=== PATIENT | male | born 1955 | race Caucasian/White ===

== ENCOUNTER 2019-01-17 10:23 | Inpatient (IN) ==
[2019-01-17] MEDS ORDERED: SODIUM CHLORIDE 0.9% 1000ML 1,000 ML IV SCH (12:00)
[2019-01-17 12:04] LABS: Basophils # (auto) 0.01 K/uL (0-0.2); Basophils % (auto) 0.1 %; Eosinophils # (auto) 0.08 K/uL (0-0.5); Eosinophils % (auto) 1.1 %; Hematocrit (blood only) 44.6 % (42-52); Hemoglobin 15.3 g/dL (14.0-18.0); Immature Granulocytes # (auto) 0.02 K/uL (0.00-0.02); Immature Granulocytes % (auto) 0.3 %; Lymphocytes # (auto) 0.76 K/uL (1.2-3.4); Lymphocytes % (auto) 10.6 %; Mean Corpuscular Hgb Conc 34.3 g/dL (32-36); Mean Corpuscular Volume 94.1 fL (80-100); Mean Platelet Volume 12.1 fL (7.4-10.4); Monocytes # (auto) 0.45 K/uL (0.11-0.59); Monocytes % (auto) 6.3 %; Neutrophils # (auto) 5.84 K/uL (1.4-6.5); Neutrophils % (auto) 81.6 %; Platelet Count 242 K/uL (130-400); RDW Standard Deviation 44.7 fL (36.4-46.3); Red Blood Count 4.74 M/uL (4.7-6.1); White Blood Count 7.16 K/uL (4.8-10.8)
[2019-01-17 12:10] LABS: INR 1.1 (0.9-1.1); Prothrombin Time 11.5 Seconds (9.0-12.0)
--- NOTE | 2019-01-17 12:17 | XRay Report ---
XR chest 1V portable HISTORY: 63 years-old Male weakness acute weakness COMPARISON: None available TECHNIQUE: Portable AP view of the chest FINDINGS: Mild asymmetric right hilar prominence. Cardiac silhouette is normal in size. No pneumothorax, pleura l effusion or overt pulmonary edema. No focal airspace consolidation. Mild degenerative changes of th e shoulders and spine. IMPRESSION: 1. Mild asymmetric right hilar prominence is likely secondary to pulmonary vasculature versus adenopa thy. Correlate with prior imaging. 2. Lungs appear clear. The above report was generated using voice recognition software. It may contain grammatical, syntax o r spelling errors. Electronically signed by: Perez Almanzar M.D. 01/17/2019 12:14 PM
[2019-01-17 12:29] LABS: Blood Urea Nitrogen 23 mg/dl (7-18); Carbon Dioxide 29 mmol/L (21-32); Chloride 93 mmol/L (98-107); Potassium 4.6 mmol/L (3.5-5.1); Sodium 130 mmol/L (136-145)
[2019-01-17 12:30] LABS: Alanine Aminotransferase 116 U/L (12-78); Albumin Globulin Ratio 0.5 (0.9-2); Albumin Level 2.8 gm/dl (3.4-5.0); Alkaline Phosphatase 697 U/L (45-117); Aspartate Aminotransferase 90 U/L (15-37); BUN Creatinine Ratio 16.1 (10-20); Bilirubin,Total 3.1 mg/dl (0.2-1); Creatine Kinase 128 U/L (39-308); Creatinine Clr Calc Pharmacy 69.1 ml/min; Est GFR (African American) 58.2; Est GFR (Non-African American) 50.2; Globulin 5.2 gm/dl (2.5-4.0); Glucose 635 mg/dl (70-99)
[2019-01-17 12:40] LABS: Appearance Urine Clear (Clear); Bilirubin Urine Negative (Negative); Blood Urine Negative (Negative); Color Urine Yellow; Glucose Urine UA 3+ (Negative); Ketones Urine 1+ (Negative); Leukocyte Esterase Urine Negative (Negative); Nitrite Urine Negative (Negative); Protein Urine Negative (Negative); Specific Gravity Urine 1.041 (1.000-1.030); Urobilinogen Urine Negative (Negative)
--- NOTE | 2019-01-17 12:59 | CT Scan Report ---
ABDOMEN AND PELVIS CT WITHOUT CONTRAST CT DOSE: 1438.60 mGy.cm HISTORY: Acutely elevated LFTs with weight loss elevated LFTs, weight loss TECHNIQUE: Multiaxial CT images of the abdomen and pelvis were performed without contrast. A dose lo wering technique was utilized adhering to the principles of ALARA. COMPARISON STUDY: Chest radiograph of same day. FINDINGS: Limited study without the use of IV contrast, notably there is limited evaluation of the solid abdomi nal organs. Coronary arterial calcifications are noted. Lung bases are generally clear. No pneumatosi s or pneumoperitoneum. Spleen is mildly enlarged, 14.2 cm. Mild gallbladder distention with cholelith iasis noted about the gallbladder fundus. No associated gallbladder wall thickening or pericholecysti c fluid. There are several dense foci noted about the common bile duct measuring up to approximately 7 mm compatible with choledocholithiasis. Moderate intrahepatic and extrahepatic biliary ductal dilat ion, common bile duct measuring up to 1.5 cm transversely. The pancreas and adrenal glands are unrema rkable. Mild nonspecific bilateral perinephric stranding. Probable cyst of the inferior pole left kid mp, 11 mm. Ureters, and urinary bladder are unremarkable. Prostamegaly. No aortic aneurysm or adenop athy. Suspected tiny hiatal hernia. No bowel obstruction or focal bowel wall thickening. Mild colonic diver ticulosis without acute diverticulitis. Normal appendix. No ascites or mesenteric inflammation. Small fat filled periumbilical hernia. Soft tissues are unremarkable. Multilevel facet arthrosis with inte rvertebral disc space narrowing and posterior disc osteophyte complex formation resulting in multilev el central canal stenosis. IMPRESSION: 1. Cholelithiasis with choledocholithiasis results in gallbladder distention and moderate intrahepati c and extrahepatic biliary ductal dilation. 2. No CT evidence of acute cholecystitis or pancreatitis. 3. No bowel obstruction or bowel wall thickening. Normal appendix. 4. Prostamegaly. 5. Additional findings as above. Electronically signed by: Perez Almanzar M.D. 01/17/2019 12:57 PM
[2019-01-17] MEDS ORDERED: INSULIN GLARGINE SOLOSTAR 100 UNITS/ML 3 ML PEN SC STA (13:44)
[2019-01-17] MEDS ORDERED: INSULIN ASPART 100 UNITS/ML 3 ML PEN SC STA (13:44)
[2019-01-17] MEDS ORDERED: GLUCOSE 10 TABS/TUBE PO PRN ×2 (13:45→18:52)
[2019-01-17] MEDS ORDERED: GLUCOSE 40% GEL 15 GM TUBE PO PRN ×2 (13:45→18:52)
[2019-01-17] MEDS ORDERED: CARBOHYDRATES FOR HYPOGLYCEMIA PO PRN ×2 (13:45→18:52)
[2019-01-17] MEDS ORDERED: GLUCAGON FOR INJ 1 MG VIAL IM PRN (13:45)
[2019-01-17] MEDS ORDERED: DEXTROSE 50% 50 ML SYRINGE IV PRN ×2 (13:45→18:52)
[2019-01-17] MEDS ORDERED: ONDANSETRON INJ 2 MG/ML 2 ML VIAL IV STA (13:50)
--- NOTE | 2019-01-17 14:23 | Emergency Department Note ---
Entered by Suzan Bateman acting as a scribe for History of Present Illness General Chief complaint: Weakness Stated complaint: WEAK,TIRED,HIGH SUGAR Time Seen by Provider: 01/17/19 11:44 Source: patient and family Mode of arrival: ambulatory Limitations: no limitations History of Present Illness Provider complaint: weakness Onset (ago): month(s) 7 Location: head (generalized) Pain Consistency: + other (worsening) Quality: + other (weakness) Associated symptoms: + denies other symptoms (pain), + nausea/vomiting and + other (tired, weight loss); no headaches The patient is a 63 year old male who presents to the ER with complaints of worsening weakness that began around July. The patient reports that he has been tired but denies any pain anywhere. He states that he has been unable to work or sleep secondary to his symptoms. He also notes that he has been vomiting during this time as well. He reports that he was recently evaluated by his PCP and diagnosed with autoimmune hepatitis. He states that he has been told he has gallstones as well but denies having a cholecystectomy performed. He explains that he does have an appointment with GI on February 11. His family at bedside notes that he has lost about 50 pounds since July as well. He reports that he did take his blood pressure medication this morning. He also states that he recently finished a Z-Luke and amoxicillin for a URI. Home Medications Home Medications Medication Instructions Recorded Confirmed Type amlodipine 10 mg PO DAILY 01/17/19 01/17/19 History atenolol 50 mg PO DAILY 01/17/19 01/17/19 History azithromycin 250 mg PO DIRECTED 01/17/19 01/17/19 History lisinopril 10 mg PO DAILY 01/17/19 01/17/19 History metformin 500 mg PO BID 01/17/19 01/17/19 History simvastatin 40 mg PO PM 01/17/19 01/17/19 History zolpidem [Ambien] 5 mg PO HS PRN 01/17/19 01/17/19 History Allergies Allergy/AdvReac Type Severity Reaction Status Date / Time No Known Allergies Allergy Unverified 01/17/19 11:47 Past Med/Surg History Medical History HTN (hypertension) Autoimmune hepatitis Social History marital status: Current Living Situation: Family Feels Safe at Home: Yes Smoking Status: Never smoker Review of Systems See HPI for pertinent positives & negatives. and A total of 10 systems reviewed and were otherwise negative Physical Exam Vital Signs Vital Signs - 24 hr 01/17/19 10:32 01/17/19 11:04 01/17/19 11:30 Temperature 36.4 C L Temperature Source Oral Sepsis Recent Fever Within 48 Hours No Sepsis Action Taken by Nursing No Action Required Pulse Rate 78 73 67 Pulse Rate from SpO2 Sensor Respiratory Rate 20 12 Respiratory Effort / Characteristics Non-Labored Spontaneous Respiratory Depth Normal Blood Pressure 120/69 133/70 130/66 Blood Pressure Mean 86 91 87 Blood Pressure Position Sitting Pulse Oximetry 99 Oxygen Delivery Method Room Air 01/17/19 12:29 01/17/19 12:30 01/17/19 12:32 Temperature Temperature Source Sepsis Recent Fever Within 48 Hours Sepsis Action Taken by Nursing Pulse Rate 66 66 66 Pulse Rate from SpO2 Sensor 66 66 66 Respiratory Rate 18 21 22 Respiratory Effort / Characteristics Respiratory Depth Blood Pressure 134/73 142/70 H Blood Pressure Mean 93 94 Blood Pressure Position Pulse Oximetry 96 96 95 Oxygen Delivery Method 01/17/19 13:01 01/17/19 13:31 Temperature Temperature Source Sepsis Recent Fever Within 48 Hours Sepsis Action Taken by Nursing Pulse Rate 66 74 Pulse Rate from SpO2 Sensor 65 74 Respiratory Rate 22 27 H Respiratory Effort / Characteristics Respiratory Depth Blood Pressure 147/79 H 146/81 H Blood Pressure Mean 101 102 Blood Pressure Position Pulse Oximetry 96 97 Oxygen Delivery Method CONSTITUTIONAL/VITAL SIGNS: Reviewed / noted above. GENERAL: Non-toxic in appearance. INTEGUMENTARY: Warm, dry, and [place]. HEAD: Normocephalic. EYES: without scleral icterus or trauma. ENT/OROPHARYNX: clear and moist. LYMPHADENOPATHY/NECK: Is supple without lymphadenopathy or meningismus. RESPIRATORY: Lungs clear and equal. CARDIOVASCULAR: Regular rate and rhythm. GI/ABDOMEN: Soft and nontender. No organomegaly or pulsatile mass. No rebound or guarding. Normal bowel sounds. EXTREMITIES: Warm and well perfused. BACK: No CVA tenderness. NEUROLOGICAL: Intact without focal deficits. PSYCHIATRIC: normal affect. MUSCULOSKELETAL: Normally developed with good muscle tone. Course 1145: Past medical records reviewed. The patient was evaluated in room C5. A complete history and physical examination was performed. 1337: I discussed the patient's case with Dr. Culp - [facility] Hospitalist. He will evaluate the patient for further management. 1345: I updated the patient and he is agreeable with the treatment plan. Administered Medications Discontinued Medications Sodium Chloride (Nss 1000ml) 1,000 mls @ 999 mls/hr IV .Q1H1M ROXI Stop: 01/17/19 13:00 Last Infusion: 01/17/19 13:41 Dose: 0 mls/hr Documented by: [id number] Admin: 01/17/19 12:38 Dose: 999 mls/hr Documented by: [id number] Insulin Aspart (Novolog Flexpen) 20 units SC NOW STA Stop: 01/17/19 13:45 Last Admin: 01/17/19 13:54 Dose: 20 units Documented by: [id number] Cosigned by: [id number] Insulin Glargine (Lantus Solostar Pen) 20 units SC NOW STA Stop: 01/17/19 13:45 Last Admin: 01/17/19 13:53 Dose: 20 units Documented by: [id number] Cosigned by: [id number] Ondansetron HCl (Zofran) 4 mg IV NOW STA Stop: 01/17/19 13:51 Last Admin: 01/17/19 13:57 Dose: 4 mg Documented by: [id number] Medical Decision Making Differential Diagnosis Differential diagnosis includes: dehydration, stroke, anemia, hypoglycemia, hyponatremia, hypernatremia, urinary tract infection, pneumonia, bronchitis, sepsis, gastroenteritis, additional abdominal pathology, metabolic abnormalities and infections. Medical Records Attestation: I reviewed the patient's medical records. Home Medications Current Medication List: was personally reviewed by me Laboratory Data Attestation: I reviewed the patient's lab results. Result diagrams: 01/17/19 11:58 01/17/19 11:58 Lab Results 01/17/19 01/17/19 01/17/19 Range/Units 11:58 11:58 11:58 WBC 7.16 (4.8-10.8) K/uL RBC 4.74 (4.7-6.1) M/uL Hgb 15.3 (14.0-18.0) g/dL Hct 44.6 (42-52) % MCV 94.1 (80-100) fL MCH 32.3 (25-34) pg MCHC 34.3 (32-36) g/dL RDW Std Deviation 44.7 (36.4-46.3) fL RDW Coeff of Cynthia 13.0 (11.5-14.5) % Plt Count 242 (130-400) K/uL MPV 12.1 H (7.4-10.4) fL Immature Gran % (Auto) 0.3 % Neut % (Auto) 81.6 % Lymph % (Auto) 10.6 % Rice % (Auto) 6.3 % Eos % (Auto) 1.1 % Baso % (Auto) 0.1 % Immature Gran # (Auto) 0.02 (0.00-0.02) K/uL Neut # (Auto) 5.84 (1.4-6.5) K/uL Lymph # (Auto) 0.76 L (1.2-3.4) K/uL Rice # (Auto) 0.45 (0.11-0.59) K/uL Eos # (Auto) 0.08 (0-0.5) K/uL Baso # (Auto) 0.01 (0-0.2) K/uL PT 11.5 (9.0-12.0) Seconds INR 1.1 (0.9-1.1) Sodium 130 L (136-145) mmol/L Potassium 4.6 (3.5-5.1) mmol/L Chloride 93 L (98-107) mmol/L Carbon Dioxide 29 (21-32) mmol/L Anion Gap 8.0 (3-11) BUN 23 H (7-18) mg/dl Creatinine 1.45 H (0.6-1.4) mg/dl Est Cr Clr Drug Dosing 69.1 ml/min Est GFR ( Amer) 58.2 Est GFR (Non-Af Amer) 50.2 BUN/Creatinine Ratio 16.1 (10-20) Glucose 635 H* (70-99) mg/dl POC Glucose (70-99) Calcium 9.0 (8.5-10.1) mg/dl Total Bilirubin 3.1 H (0.2-1) mg/dl AST 90 H (15-37) U/L ALT 116 H (12-78) U/L Alkaline Phosphatase 697 H (45-117) U/L Total Creatine Kinase 128 (39-308) U/L Total Protein 8.0 (6.4-8.2) gm/dl Albumin 2.8 L (3.4-5.0) gm/dl Globulin 5.2 H (2.5-4.0) gm/dl Albumin/Globulin Ratio 0.5 L (0.9-2) Lipase (73-393) U/L Beta-Hydroxybutyric Acd TNP TSH 1.700 (0.300-4.500) uIu/ml Urine Color Urine Appearance (Clear) Urine pH (4.5-7.5) Ur Specific [place] (1.000-1.030) Urine Protein (Negative) Urine Glucose (UA) (Negative) Urine Ketones (Negative) Urine Blood (Negative) Urine Nitrite (Negative) Urine Bilirubin (Negative) Urine Urobilinogen (Negative) Ur Leukocyte Esterase (Negative) 01/17/19 01/17/19 01/17/19 Range/Units 11:58 12:30 13:16 WBC (4.8-10.8) K/uL RBC (4.7-6.1) M/uL Hgb (14.0-18.0) g/dL Hct (42-52) % MCV (80-100) fL MCH (25-34) pg MCHC (32-36) g/dL RDW Std Deviation (36.4-46.3) fL RDW Coeff of Cynthia (11.5-14.5) % Plt Count (130-400) K/uL MPV (7.4-10.4) fL Immature Gran % (Auto) % Neut % (Auto) % Lymph % (Auto) % Rice % (Auto) % Eos % (Auto) % Baso % (Auto) % Immature Gran # (Auto) (0.00-0.02) K/uL Neut # (Auto) (1.4-6.5) K/uL Lymph # (Auto) (1.2-3.4) K/uL Rice # (Auto) (0.11-0.59) K/uL Eos # (Auto) (0-0.5) K/uL Baso # (Auto) (0-0.2) K/uL PT (9.0-12.0) Seconds INR (0.9-1.1) Sodium (136-145) mmol/L Potassium (3.5-5.1) mmol/L Chloride (98-107) mmol/L Carbon Dioxide (21-32) mmol/L Anion Gap (3-11) BUN (7-18) mg/dl Creatinine (0.6-1.4) mg/dl Est Cr Clr Drug Dosing ml/min Est GFR ( Amer) Est GFR (Non-Af Amer) BUN/Creatinine Ratio (10-20) Glucose (70-99) mg/dl POC Glucose 554 H* (70-99) Calcium (8.5-10.1) mg/dl Total Bilirubin (0.2-1) mg/dl AST (15-37) U/L ALT (12-78) U/L Alkaline Phosphatase (45-117) U/L Total Creatine Kinase (39-308) U/L Total Protein (6.4-8.2) gm/dl Albumin (3.4-5.0) gm/dl Globulin (2.5-4.0) gm/dl Albumin/Globulin Ratio (0.9-2) Lipase 436 H (73-393) U/L Beta-Hydroxybutyric Acd TSH (0.300-4.500) uIu/ml Urine Color Yellow Urine Appearance Clear (Clear) Urine pH 5.0 (4.5-7.5) Ur Specific [place] 1.041 H (1.000-1.030) Urine Protein Negative (Negative) Urine Glucose (UA) 3+ H (Negative) Urine Ketones 1+ H (Negative) Urine Blood Negative (Negative) Urine Nitrite Negative (Negative) Urine Bilirubin Negative (Negative) Urine Urobilinogen Negative (Negative) Ur Leukocyte Esterase Negative (Negative) Imaging Data Radiologist's Impression: Radiology results as stated below per my review and the radiologist's interpretation: XR chest 1V portable HISTORY: 63 years-old Male weakness acute weakness COMPARISON: None available TECHNIQUE: Portable AP view of the chest FINDINGS: Mild asymmetric right hilar prominence. Cardiac silhouette is normal in size. No pneumothorax, pleural effusion or overt pulmonary edema. No focal airspace consolidation. Mild degenerative changes of the shoulders and spine. IMPRESSION: 1. Mild asymmetric right hilar prominence is likely secondary to pulmonary vasculature versus adenopathy. Correlate with prior imaging. 2. Lungs appear clear. The above report was generated using voice recognition software. It may contain grammatical, syntax or spelling errors. Electronically signed by: Perez Almanzar M.D. 01/17/2019 12:14 PM [address]EN AND PELVIS CT WITHOUT CONTRAST CT DOSE: 1438.60 mGy.cm HISTORY: Acutely elevated LFTs with weight loss elevated LFTs, weight loss TECHNIQUE: Multiaxial CT images of the abdomen and pelvis were performed without contrast. A dose lowering technique was utilized adhering to the principles of ALARA. COMPARISON STUDY: Chest radiograph of same day. FINDINGS: Limited study without the use of IV contrast, notably there is limited evaluation of the solid abdominal organs. Coronary arterial calcifications are noted. Lung bases are generally clear. No pneumatosis or pneumoperitoneum. Spleen is mildly enlarged, 14.2 cm. Mild gallbladder distention with chol elithiasis noted about the gallbladder fundus. No associated gallbladder wall thickening or pericholecystic fluid. There are several dense foci noted about the common bile duct measuring up to approximately 7 mm compatible with choledocholithiasis. Moderate intrahepatic and extrahepatic biliary ductal dilation, common bile duct measuring up to 1.5 cm transversely. The pancreas and adrenal glands are unremarkable. Mild nonspecific bilateral perinephric stranding. Probable cyst of the inferior pole left kidney, 11 mm. Ureters, and urinary bladder are unremarkable. Prostamegaly. No aortic aneurysm or adenopathy. Suspected tiny hiatal hernia. No bowel obstruction or focal bowel wall thickening. Mild colonic diverticulosis without acute diverticulitis. Normal appendix. No ascites or mesenteric inflammation. Small fat filled periumbilical hernia. Soft tissues are unremarkable. Multilevel facet arthrosis with intervertebral disc space narrowing and posterior disc osteophyte complex formation resulting in multilevel central canal stenosis. IMPRESSION: 1. Cholelithiasis with choledocholithiasis results in gallbladder distention and moderate intrahepatic and extrahepatic biliary ductal dilation. 2. No CT evidence of acute cholecystitis or pancreatitis. 3. No bowel obstruction or bowel wall thickening. Normal appendix. 4. Prostamegaly. 5. Additional findings as above. Electronically signed by: Perez Almanzar M.D. 01/17/2019 12:57 PM ECG Data Attestation: I personally reviewed and interpreted this ECG as follows: Indication: weakness Rate (beats per minute): 74 Rhythm: normal sinus Findings: no ST elevation and no ectopy Blood Pressure Blood Pressure Findings: Elevated blood pressure Blood Pressure Disposition: further management by hospitalist MDM Narrative This is a 63-year-old male who presents to the ED with a chief complaint of generalized fatigue and weakness. The patient has not been feeling well since July. He states that he has been diagnosed with cholelithiasis as well as an autoimmune hepatitis. The patient states that he is occasionally been vomiting since July. The patient states that he has been feeling weak. Today he felt so weak he felt like he might pass out. He also recently was started on metformin for elevated blood sugars. His vital signs here today are normal. His physical exam did not reveal any abdominal tenderness. He does appear to be dehydrated and generally weak. His blood sugar was 635. His CBC was normal. His BUN is 23. Creatinine is 1.45. Bilirubin is elevated at 3.1. AST and ALT are elevated at 90 and 116 respectively. Alkaline phosphatase was 697. A CT scan of the abdomen pelvis reveals cholelithiasis as well as choledocholithiasis resulting in gallbladder distention and moderate intrahepatic biliary ductal dilatation. Chest x-ray did not show acute process. A TSH was normal EKG shows a normal sinus rhythm. The patient was treated with IV fluids. He was given IV Zofran for nausea and vomiting here. The patient was also given IV NovoLog insulin and Lantus insulin. The patient will be seen by the hospitalist for further inpatient evaluation and care. Impression & Plan Choledocholithiasis, Transaminitis Discharge Plan Visit Data Chief Complaint: Weakness Stated Complaint: WEAK,TIRED,HIGH SUGAR ED Provider: Deshawn Lockett Discharge Problem: Choledocholithiasis, Transaminitis Patient Disposition: Being Evaluated by Hospitalist Forms Stand Alone Forms: My [facility] Prescriptions Prescriptions: No Action metformin 500 mg Tablet 500 mg PO BID RF: 0 azithromycin 250 mg tablet 250 mg PO DIRECTED RF: 0 amlodipine 10 mg tablet 10 mg PO DAILY RF: 0 lisinopril 10 mg Tablet 10 mg PO DAILY RF: 0 zolpidem [Ambien] 5 mg Tablet 5 mg PO HS PRN (Reason: Sleep) RF: 0 atenolol 50 mg Tablet 50 mg PO DAILY RF: 0 simvastatin 40 mg Tablet 40 mg PO PM RF: 0 Referrals Referrals: PCP,NO [Primary Care Provider] - The scribe's documentation has been prepared under my direction and personally reviewed by me in its entirety. I confirm that the note above accurately reflects all work, treatment, procedures, and medical decision making performed by me.
--- NOTE | 2019-01-17 17:29 | History & Physical Report ---
Date of Service January 17, 2019 Assessment & Plan (1) Choledocholithiasis: Donal is a 63-year-old male with past medical history of diabetes, hypertension, and recently diagnosed autoimmune hepatitis who presents with several months of nausea and vomiting without abdominal pain. Initial eval uation shows uncontrolled diabetes mellitus and colelithiasis/choledocholithiasis without cholecystitis. Choledocholithiasis/cholecystitis CTA/P shows cholelithiasis/choledocholithiasis with gallbladder distention, moderate intrahepatic and extrahepatic biliary ductal dilation. Common bile duct dilation to 1.5 cm. - No signs of cholecystitis on imaging, patient is afebrile without leukocytos is. No abdominal pain, Malcolm's negative Increased total bilirubin, mild transaminitis, increased alkaline phosphatase, increased lipase likely due to above. Repeat lipase with CMP daily GI consulted. Recommended ERCP, likely tomorrow. Patient will remain n.p.o. until then. No need for MRCP prior to ERCP for evaluation of AI hepatitis noted below N.p.o. 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 Does not require MRCP prior to ERCP, will obtain records from PCP. Do not recommend any testing at this time pending records. No treatment at this time. Transaminitis may also be due to cholelithiasis as noted above. 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 daily Continue atenolol 50 mg p.o. 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 DVT prophylaxis: SCDs. No pharmacologic anticoagulation in anticipation of GI procedures. CODE STATUS: Full code (2) Transaminitis: (3) HTN (hypertension): (4) Autoimmune hepatitis: History of Present Illness Chief Complaint: Vomiting Primary Care Provider: Abebe Hodgson Donal is a 63-year-old male with past medical history of diabetes, hypertension, and recently diagnosed autoimmune hepatitis who presents with several months of nausea and vomiting without abdominal pain. He reports that progressively increasing fatigue and continued vomiting or what caused him to present to the emergency department today. He has been told he had gallstones in the past and was to have a follow-up appointment with gastroenterology on February 11, but has clinically worsen before that appointment. He also endorses 50 pounds of weight loss since July in the setting of difficulty with oral intake. He reports his vomiting began in July and was initially induced with a greasy meal. It continued through August and October occurring about every 15 days. He notes some emesis after greasy foods and occasional posttussive emesis. All episodes of emesis have been randall/brown and without green/black/bilious appearance. He has had intermittent nausea with dry heaves over this timeframe. He reports his bowel movements have been normal, about once per day. No problems with diarrhea, constipation, or beronica colored stools. He lives at his home in [place], [place] with his and son. Denies any current or previous alcohol use. Denies current or former tobacco use. Denies recreational drug use. Denies past surgical history including cholecystectomy Endorses a family history of fibromyalgia and "high blood sugar but not diabetes "in his mother. Denies history of colon cancer, liver disease, autoimmune disease, strokes, heart attacks, coronary artery disease, bleeding disorders in first-degree relatives. [facility] P[facility]: JANEEN [facility] Allergies Allergy/AdvReac Type Severity Reaction Status Date / Time No Known Allergies Allergy Unverified 01/17/19 11:47 Home Medications Home Medications Medication Instructions Recorded Confirmed Type amlodipine 10 mg PO DAILY 01/17/19 01/17/19 History atenolol 50 mg PO DAILY 01/17/19 01/17/19 History azithromycin 250 mg PO DIRECTED 01/17/19 01/17/19 History lisinopril 10 mg PO DAILY 01/17/19 01/17/19 History metformin 500 mg PO BID 01/17/19 01/17/19 History simvastatin 40 mg PO PM 01/17/19 01/17/19 History zolpidem [Ambien] 5 mg PO HS PRN 01/17/19 01/17/19 History Past Med/Surg History Medical History HTN (hypertension) Autoimmune hepatitis Social History Preferred Language: Vietnamese Communication Ability: Effective Waste Minimization Technician Required: No Beliefs That Will Affect Care: Judaism Judaism Beliefs: Cheondoism marital status: Current Living Situation: Family Other Information That Helps Us Care for You: No Feels Safe at Home: Yes Safety Concerns: Feels Safe At This Time Smoking Status: Never smoker Do You Dip or Chew Tobacco: No Hx Alcohol Use: No (never used) Hx Substance Use: No (never used) Review of Systems Constitutional: + fatigue and + weight loss; no fever, no chills and no sweats Eyes: + corrective lenses; no blind spots, no diplopia, no discharge, no eye pain, no spots in vision and no worsening vision Ear, Nose, Mouth, Throat: no ear pain, no ear discharge, no dizziness, no nasal congestion, no sinus pain/pressure, no sore throat and no dysphagia Respiratory: no cough, no chest congestion, no change in sputum, no dyspnea, no dyspnea on exertion, no hemoptysis, no sputum production and no wheezing Cardiovascular: no chest pain, no chest pain at rest, no chest pain with activity, no radiating jaw, neck or arm pain, no dyspnea, no dyspnea at rest, no dyspnea on exertion, no orthopnea, no palpitations, no syncope and no edema Gastrointestinal: + belching, + nausea and + vomiting; no abdominal pain, no heartburn, no coffee ground emesis, no hematemesis, no dysphagia, no change in bowel habits, no constipation, no diarrhea/loose stools, no blood in stools and no melena Genitourinary: no dysuria, no difficulty urinating and no urinary hesitancy Musculoskeletal: + muscle weakness (Endorses global fatigue); no back pain, no neck pain, no radicular pain, no joint pain and no myalgia Integumentary: no acne, no lesions, no new lesions, no skin ulcer, no sores, no wounds and no yellowing of the skin Neurologic: no unsteadiness, no localized weakness, no generalized weakness, no loss of sensation, no tingling, no numbness, no paresthesia, no syncope, no headache(s) and no confusion Endocrine: + fatigue Physical Exam Physical Exam: General: A&Ox3. NAD. Cooperative. Laying in hospital bed. HEENT: Atraumatic, normocephalic. Pupils equally reactive to light and accommodation. Extraocular movements intact. Visual acuity grossly intact. Funduscopic exam reveals sharp optic disks without papilledema, good venous pulsations, no cotton-wool spots appreciated. No cervical adenopathy. No bruits. Pulm: CTAB A&P. -wheezes, -rales, -rhonchi. Symmetrical chest rise. No increase work of breathing. No respiratory distress. Cardiac: RRR, -mrg. Radial pulses intact and symmetrical. Abdominal: Obese, softly distended. Nontender to palpation. No hepatomegaly appreciated. Malcolm's negative. BS present. Extremity: Distal extremities intact, atraumatic. Moving all extremities equally. 5 out of 5 strength in all extremities including ankle plantar flexion/dorsiflexion, data integrity consultant strength, interosseous strength, elbow flexion/extension, shoulder internal rotation/external rotation/flexion/extension. Sensation intact in distal extremities. No sensory deficit to soft touch in fingers or toes. Results & Data Vital Signs (Past 12 Hours) Vital Signs Temp Pulse Resp BP Pulse Ox 01/17/19 16:02 79 31 H 128/65 96 01/17/19 16:00 79 28 H 96 01/17/19 15:31 77 30 H 129/67 96 01/17/19 15:30 78 30 H 144/63 H 95 01/17/19 15:27 78 31 H 144/63 H 95 01/17/19 15:23 78 32 H 144/63 H 95 01/17/19 15:01 77 25 H 144/63 H 97 01/17/19 15:00 77 31 H 96 01/17/19 13:31 74 27 H 146/81 H 97 01/17/19 13:01 66 22 147/79 H 96 01/17/19 12:32 66 22 95 01/17/19 12:30 66 21 142/70 H 96 01/17/19 12:29 66 18 134/73 96 01/17/19 11:30 67 12 130/66 01/17/19 11:04 73 133/70 01/17/19 10:32 36.4 C L 78 20 120/69 99 Supervising Physician Co-Signing Physician Notes Pt seen/examined in conjunction with resident MD Carlos Ochoa. Orders and plan of admission formulated with resident. 63 y/o M Hx DM II, HTN, recently diagnosed autoimmune hepatitis. Presents with nausea/vomiting - denies abdominal pain. CT of the abdomen demonstrated cholelithiasis with choledocholithiasis, gallbladder distention and moderate intrahepatic and extrahepatic biliary ductal dilation. There was no evidence of acute cholecystitis or pancreatitis. OE AAO x 3 S1,2 R CTAB NT, ND No CCE No deficits P: GI eval for ERCP NPO, IVF, antiemetics Will likely need cholecystectomy going forward Can f/u as outpt for autoimmune her as this does not appear fulminant PG Care Time/CCT Total # of Minutes Spent Total Time Spent with Patient: Total time spent is greater than 50% in coordination of care (as documented) at patient's floor/unit and/or counseling patient:
--- NOTE | 2019-01-17 18:32 | Gastrointestinal Consultation ---
Date of Consultation January 17, 2019 Assessment & Plan (1) Choledocholithiasis: CT and bw suggestive of CBD stones so would proceed with ERCP and subsequent lap hawk with alternative open hawk with CBD exploration discussed. Pt is agrees to ERCP which will be tentatively planned for tomorrow. Proc and risks explained to patient and which include but not limited to med reaction, bleeding, perforation, aspiration, infection and pancreatitis. Explained pancreatitis can occur up to 10% of patients and be severe and life threatening. elevated LFTS--at least in part from CBD stones---recommend review of outside records for reason for autimmune hepatitis diagnosis--[facility] resident said they are trying to get those ? automimmune hepaitis--no treatment yet and LFTS not at level would need to start anyting acutely even if he has this gallstones--eventual lap hawk elevaated lipase--mild and no pancreatisi clinically History of Present Illness Reason for Consultation: choledochlithiasis, elev LFTS Requesting Physician: DR Carlos Ochoa History of Present Illness CC vomiting HPI He lives in [place] and is visiting the area with his who was with him duriing history and exam at 1700. Pt states diagnoesed with high blood sugars in July and also has been having weakness and vomiting since then. He has been avoiding food secondary to the vomiting and lost 50 lbs. He has local GI appt planned for February 11 but had more vomiting and waekness so came to ER. Pt states his PCP diagnosed autoimmune hepatitis but no treatment initiated--do no have local studies. PT denies abd pain. CT a/p on admit gallstones, CBD stones with dilated bile duct and elevated LFTS with TB 3.1. Lipase 436 but no evidence of pancreatisi on CT. Fhx neg for liver disease Allergies Allergy/AdvReac Type Severity Reaction Status Date / Time No Known Allergies Allergy Unverified 01/17/19 11:47 Home Medications Home Medications Medication Instructions Recorded Confirmed Type amlodipine 10 mg PO DAILY 01/17/19 01/17/19 History atenolol 50 mg PO DAILY 01/17/19 01/17/19 History azithromycin 250 mg PO DIRECTED 01/17/19 01/17/19 History lisinopril 10 mg PO DAILY 01/17/19 01/17/19 History metformin 500 mg PO BID 01/17/19 01/17/19 History simvastatin 40 mg PO PM 01/17/19 01/17/19 History zolpidem [Ambien] 5 mg PO HS PRN 01/17/19 01/17/19 History Patient History Medical History HTN (hypertension) Autoimmune hepatitis Social History Preferred Language: Swedish Communication Ability: Effective Procurement Manager Required: No Beliefs That Will Affect Care: Cheondoism Cheondoism Beliefs: Taoist marital status: Current Living Situation: Family Other Information That Helps Us Care for You: No Feels Safe at Home: Yes Safety Concerns: Feels Safe At This Time Smoking Status: Never smoker Do You Dip or Chew Tobacco: No Hx Alcohol Use: No (never used) Hx Substance Use: No (never used) Review of Systems Review of Systems: All systems reviewed & are unremarkable except as noted in HPI & below Physical Exam Constitutional: WD/WN, vitals as above Eyes: PERRL, conjunctivae normal, anicteric sclerae ENMT: external ear and nose normal, oropharynx normal Neck: trachea midline Respiratory: normal respiratory effort, lungs clear to auscultation Cardiovascular: RRR, no murmur, no edema Gastrointestinal (Abdomen): normal bowel sounds, soft, nontender, no hepatosplenomegaly Neurologic: PERRL, EOMI, accommodation nl, no face palsy, no dysarthria Psychiatric: A+Ox3, euthymic affect Results & Data Vital Signs (Past 12 Hours) Vital Signs Temp Pulse Resp BP Pulse Ox 01/17/19 16:02 79 31 H 128/65 96 01/17/19 16:00 79 28 H 96 01/17/19 15:31 77 30 H 129/67 96 01/17/19 15:30 78 30 H 144/63 H 95 01/17/19 15:27 78 31 H 144/63 H 95 01/17/19 15:23 78 32 H 144/63 H 95 01/17/19 15:01 77 25 H 144/63 H 97 01/17/19 15:00 77 31 H 96 01/17/19 13:31 74 27 H 146/81 H 97 01/17/19 13:01 66 22 147/79 H 96 01/17/19 12:32 66 22 95 01/17/19 12:30 66 21 142/70 H 96 01/17/19 12:29 66 18 134/73 96 01/17/19 11:30 67 12 130/66 01/17/19 11:04 73 133/70 01/17/19 10:32 36.4 C L 78 20 120/69 99
[2019-01-17] MEDS ORDERED: GLUCAGON FOR INJ 1 MG VIAL SQ PRN (18:52)
[2019-01-17] MEDS ORDERED: ONDANSETRON INJ 2 MG/ML 2 ML VIAL IV PRN (18:52)
[2019-01-17] MEDS ORDERED: PHARMACY GLYCEMIC MGMT CONSULT STA (18:52)
[2019-01-17] MEDS ORDERED: MODERATE STRESS LEVEL ONE (18:52)
[2019-01-17] MEDS: LACTATED RINGER'S 1,000 ML IV SCH (20:08)
[2019-01-17] MEDS ORDERED: INSULIN REGULAR 250 UNITS in SODIUM CHLORIDE 0.9% 247.5 ML IV SCH (20:15)
[2019-01-17] MEDS ORDERED: PHARMACY GLYCEMIC MGMT CONSULT PRN (20:15)
[2019-01-17] MEDS ORDERED: INSULIN HUMAN REGULAR IV BOLUS 3 UNITS in SYRINGE 0 ML IV ONE (20:15)
[2019-01-17] MEDS: INSULIN ASPART 100 UNITS/ML 3 ML PEN SC SCH (21:03)
[2019-01-18] MEDS: LACTATED RINGER'S 1,000 ML IV SCH ×3 (04:13→23:05)
[2019-01-18 06:27] LABS: Basophils # (auto) 0.01 K/uL (0-0.2); Basophils % (auto) 0.1 %; Eosinophils # (auto) 0.09 K/uL (0-0.5); Eosinophils % (auto) 1.1 %; Hematocrit (blood only) 39.5 % (42-52); Hemoglobin 13.7 g/dL (14.0-18.0); Immature Granulocytes # (auto) 0.01 K/uL (0.00-0.02); Immature Granulocytes % (auto) 0.1 %; Lymphocytes # (auto) 0.87 K/uL (1.2-3.4); Lymphocytes % (auto) 10.2 %; Mean Corpuscular Hgb Conc 34.7 g/dL (32-36); Mean Corpuscular Volume 92.9 fL (80-100); Mean Platelet Volume 11.5 fL (7.4-10.4); Monocytes # (auto) 0.54 K/uL (0.11-0.59); Monocytes % (auto) 6.3 %; Neutrophils # (auto) 7.04 K/uL (1.4-6.5); Neutrophils % (auto) 82.2 %; Platelet Count 191 K/uL (130-400); RDW Coefficient of Variation 13.2 % (11.5-14.5); Red Blood Count 4.25 M/uL (4.7-6.1); White Blood Count 8.56 K/uL (4.8-10.8)
[2019-01-18 07:02] LABS: Estimated Average Glucose 329 mg/dl; Hemoglobin A1C 13.1 % (4.5-5.6)
[2019-01-18 07:03] LABS: Albumin Level 2.3 gm/dl (3.4-5.0); BUN Creatinine Ratio 21.2 (10-20); Calcium 8.8 mg/dl (8.5-10.1); Creatinine Clr Calc Pharmacy 85.8 ml/min; Est GFR (African American) 76.2; Est GFR (Non-African American) 65.7; Potassium 3.8 mmol/L (3.5-5.1)
[2019-01-18 07:06] LABS: Albumin Globulin Ratio 0.5 (0.9-2); Bilirubin,Total 3.7 mg/dl (0.2-1); Globulin 4.6 gm/dl (2.5-4.0); Total Protein 6.9 gm/dl (6.4-8.2)
[2019-01-18 07:25] LABS: Partial Thromboplastin Time 26.8 Seconds (21.0-31.0)
[2019-01-18] MEDS: ATENOLOL 50 MG TABLET PO SCH (07:36)
[2019-01-18] MEDS: AMLODIPINE BESYLATE 5 MG TAB PO SCH (07:36)
[2019-01-18] MEDS: INSULIN ASPART 100 UNITS/ML 3 ML PEN SC SCH ×3 (08:02→20:29)
[2019-01-18] MEDS ORDERED: INSULIN GLARGINE SOLOSTAR 100 UNITS/ML 3 ML PEN SC ONE (09:00)
--- NOTE | 2019-01-18 11:33 | Family Medicine Progress Note ---
Date of Service January 18, 2019 Assessment & Plan (1) Choledocholithiasis: Donal is a 63-year-old male with past medical history of diabetes, hypertension, and recently diagnosed autoimmune hepatitis who presents with several months of nausea and vomiting without abdominal pain. Initial eval uation shows uncontrolled diabetes mellitus and colelithiasis/choledocholithiasis without cholecystitis. Choledocholithiasis/cholecystitis CTA/P shows cholelithiasis/choledocholithiasis with gallbladder distention, moderate intrahepatic and extrahepatic biliary ductal dilation. Common bile duct dilation to 1.5 cm. - No signs of cholecystitis on imaging, patient is afebrile without leukocytos is. No abdominal pain, Malcolm's negative Increased total bilirubin, mild transaminitis, increased alkaline phosphatase, increased lipase likely due to above. - Lipase elevation normalized on repeat today GI consulted. Pending ERCP. No need for MRCP prior to ERCP for evaluation of AI hepatitis noted below N.p.o. 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 Convert to subcu insulin tomorrow after 24 evaluation of sensitivity and requirements. - Will require increased control on d/c. Dual/Triple therapy vs Insulin adjunct depending on his requirements and A1C. Autoimmune hepatitis with transaminitis Recently diagnosed as outpatient GI aware during consult. Does not require MRCP prior to ERCP. Do not recommend any testing at this time pending records. No treatment at this time. Transaminitis may also be due to cholelithiasis as noted above. -Pending recent records and lab work to be faxed from his PCP in [place]. 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 Per their labs reference range a moderate to strong positive is greater than 30, n egative is 0-19, 20-30 is weak positive/equivocal. Prerenal azotemia, resolved Serum creatinine 1.45 on admission. 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 daily Continue atenolol 50 mg p.o. daily Lisinopril initially held in the setting of EDUARDO versus azotemia, Resume lisinopril 10 mg p.o. 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 Diet: N.p.o. DVT prophylaxis: SCDs. No pharmacologic anticoagulation in anticipation of GI procedures. CODE STATUS: Full code Supervising Physician Co-Signing Physician Notes Resident Physician Supervision Note: I independently interviewed and examined the patient and verified the diaz history and physical, reviewed labs and image studies, discussed the case with the resident Dr. Ochoa and agree with the findings and care plan. Subjective Donal reports he feels okay this morning. He is not having any nausea or abdominal pain today. He has not vomited today. He denies fever, chills, sweats, night sweats, shortness of breath, difficulty breathing, chest pain, chest pressure, itching/pruritus, lightheadedness, dizziness today. Overall he feels in his normal state of health, but notes that his nausea and vomiting have been intermittent over the last 3 months. He is aware he is getting ERCP today. Collateral records was obtained from his PCPs office in [place], [place] ([facility]). Request for recent lab records has been faxed, your office was contacted at [phone]. Nurse confirmed that he has had anti-smooth muscle testing with a result of 32. Further labs reference range a value greater than 30 is indicative of a moderate to strong positive, and a value 0-19 is considered negative. His result puts him in the moderate to strong positive range. Review of Systems Review of Systems: All systems reviewed & are unremarkable except as noted in HPI & below Physical Exam Physical Exam: General: A&Ox3. NAD. Cooperative. Laying in hospital bed. HEENT: Atraumatic, normocephalic. Visual acuity grossly intact. Pulm: CTAB A&P. -wheezes, -rales, -rhonchi. Symmetrical chest rise. No increase in work of breathing. No respiratory distress. Cardiac: RRR, -mrg. Radial pulses intact and symmetrical. Abdominal: Obese, softly distended. Nontender to palpation. No hepatomegaly appreciated. Malcolm's negative. BS present. Extremity: Distal extremities intact, atraumatic. Moving all extremities equally. 5 out of 5 strength in all extremities including ankle plantar flexion/dorsiflexion, supervisor polishing strength, interosseous strength, elbow flexion/extension, shoulder internal rotation/external rotation/flexion/extension. Sensation intact in distal extremities. No sensory deficit to soft touch in fingers or toes. Results & Data Vital Signs (Past 12 Hours) Vital Signs Temp Pulse Resp BP Pulse Ox 01/18/19 07:21 36.7 C 57 L 18 115/69 96 PG Care Time/CCT Total # of Minutes Spent Total Time Spent with Patient: Total time spent is greater than 50% in coordination of care (as documented) at patient's floor/unit and/or counseling patient: Resident Activity Tracking Resident Involvement: Resident Care Provided Care Provided: Adult Hospital Medicine
--- NOTE | 2019-01-18 14:25 | Pharmacy Report ---
Glycemic Control Consultation - Date of Service January 18, 2019 - Scope Scope: Glycemic Pharmacist consulted by Dr Ochoa on 01/17/19 for glycemic control and to write orders per [facility] inpatient glycemic control protocol - Objective Weight: 122.6 kg Accuchecks BSG (last 24hrs): 01/17/19 01/17/19 01/17/19 14:31 19:27 19:30 Glucose POC Glucose 573 H* 359 H* 351 H* 01/17/19 01/17/19 01/17/19 21:24 22:28 23:34 Glucose POC Glucose 330 H* 317 H* 360 H* 01/18/19 01/18/19 01/18/19 00:17 01:21 02:26 Glucose POC Glucose 274 H 240 H 217 H 01/18/19 01/18/19 01/18/19 03:27 04:26 05:29 Glucose POC Glucose 169 H 148 H 131 H 01/18/19 01/18/19 01/18/19 05:48 06:29 07:36 Glucose 135 H POC Glucose 164 H 117 H 01/18/19 01/18/19 01/18/19 07:57 08:14 08:47 Glucose POC Glucose 120 H 125 H 151 H 01/18/19 01/18/19 09:03 11:28 Glucose POC Glucose 158 H 183 H Laboratory Data (last 24hrs): 01/18/19 05:48 Potassium 3.8 D Carbon Dioxide 29 Anion Gap 5.0 Creatinine 1.16 Est Cr Clr Drug Dosing 85.8 HbA1c: Hemoglobin A1c 13.1 % (4.5-5.6) H 01/17/19 11:58 - Recent Pertinent Medications Outpatient Anti-diabetic Regimen: * Metformin 500mg BIDM * A1c = 13.1 % 01/18/19 - Assessment & Plan Assessment & Plan: ASSESSMENT: * Mr. Melendez is a 63yo M unknown to the pharmacy glycemic service. He presented evening of 01/17/19 BSGs >600mg/dL. He was slightly hyperosmolar. PMHx consistent with HTN, autoimmune hepatitis, GI pxn. Based on age and co morbidities his goal A1C <7/7.5% based on the latest ADA recs. * IVFs continue to run: LR @125. This AM, bsgs are much better controlled and insulin infsn turned itself off. He is still NPO for GI imaging. I anticipate him to have a diet ordered tonight PLAN FOR INPATIENT GLYCEMIC CONTROL: * Holding outpatient oral diabetes medications * Basal insulin * Lantus 20 units given this AM to ensure insulin gtt does not need restarted. * BID lantus scale ordered for tonight, see MAR for further details. * Bolus insulin * NovoLog per scale ACHS or Q6hrs while NPO * Goal Range: Low 110 mg/dL - High 140 mg/dL * Correction Factor: 20 mg/dL/unit * Nutritional / Prandial insulin per carb ratio of 1 unit per 6 grams CHO consumed * Please note that the plan above was derived based on current level of insulin resistance and hospital stress. These recommendations are appropriate for inpatient admission only. Plan of care upon discharge will need to be reassessed to avoid potential outpatient hypo/hyperglycemia. Thank you.
[2019-01-18] MEDS ORDERED: cefTRIAXone SODIUM 1,000 MG/50 ML BAG IV ONE (15:00)
[2019-01-18] MEDS ORDERED: INDOMETHACIN 50 MG SUPP PR SCH (15:00)
[2019-01-18] MEDS ORDERED: PROPOFOL IV EMULSION 10 MG/ML 20 ML VIAL IV ONE (15:21)
[2019-01-18] MEDS ORDERED: SUCCINYLCHOLINE CHLORIDE 20 MG/ML 10 ML VIAL ONE (15:21)
[2019-01-18] MEDS ORDERED: ONDANSETRON INJ 2 MG/ML 2 ML VIAL ONE (15:21)
[2019-01-18] MEDS ORDERED: DEXAMETHASONE SOD INJ 4 MG/ML VIAL ONE (15:21)
[2019-01-18] MEDS ORDERED: LIDOCAINE HCL 2% 2 ML VIAL/AMP(20MG/ML) INFIL ONE (15:21)
[2019-01-18] MEDS ORDERED: fentaNYL citrate 100 MCG/2 ML VIAL ONE (15:22)
--- NOTE | 2019-01-18 15:32 | Gastroenterology Progress Note ---
Date of Service January 18, 2019 Assessment & Plan (1) Choledocholithiasis: CT and bw suggestive of CBD stones so would proceed with ERCP and subsequent lap hawk with alternative open hawk with CBD exploration discussed. ERCP today. Proc and risks explained to patient and again today (son also present) which include but not limited to med reaction, bleeding, perforation, aspiration, infection and pancreatitis. Explained pancreatitis can occur up to 10% of patients and be severe and life threatening. elevated LFTS--at least in part from CBD stones---recommend review of outside records for reason for autimmune hepatitis diagnosis--worse today ? automimmune hepaitis--no treatment yet and LFTS not at level would need to start anyting acutely even if he has this gallstones--eventual lap hawk elevaated lipase--resolved. Subjective cc f/u vomiting, elev LFT, CBD stones HPI No abd pain. Feels good overall. Review of Systems Respiratory: no dyspnea Cardiovascular: no chest pain Physical Exam Constitutional: WD/WN, vitals as above Respiratory: normal respiratory effort, lungs clear to auscultation Cardiovascular: RRR, no murmur, no edema Gastrointestinal (Abdomen): normal bowel sounds, soft, nontender, no hepatosplenomegaly Psychiatric: A+Ox3, euthymic affect Results & Data Vital Signs (Past 12 Hours) Vital Signs Temp Pulse Resp BP Pulse Ox 01/18/19 07:21 36.7 C 57 L 18 115/69 96
--- NOTE | 2019-01-18 15:58 | Anesthesiology Consultation ---
Date of Service January 18, 2019 Assessment & Plan (1) Encounter for pre-operative examination: Chart Review Chart Review: Acceptable Risk for Surgery and Patient NOT seen in Pre Admission Testing Consults Requested none History Surgery Operation Date: 01/18/19 08:20 Proposed Procedures p Endoscopic Retrograde Cholangiopancreatogram - Mohan Sanchez Height/Weight Height: 6 ft Weight: 122.6 kg Allergies Allergy/AdvReac Type Severity Reaction Status Date / Time No Known Allergies Allergy Unverified 01/17/19 11:47 Medications Home Medications Medication Instructions Recorded Confirmed Last Taken amlodipine 10 mg PO DAILY 01/17/19 01/17/19 01/17/19 atenolol 50 mg PO DAILY 01/17/19 01/17/19 01/17/19 azithromycin 250 mg PO DIRECTED 01/17/19 01/17/19 01/13/19 lisinopril 10 mg PO DAILY 01/17/19 01/17/19 01/17/19 metformin 500 mg PO BID 01/17/19 01/17/19 01/17/19 simvastatin 40 mg PO PM 01/17/19 01/17/19 Unknown zolpidem [Ambien] 5 mg PO HS PRN 01/17/19 01/17/19 Unknown Active Medications Generic Name Dose Route Start Last Admin Trade Name Freq PRN Reason Stop Dose Admin Amlodipine Besylate 10 mg 01/18/19 09:00 01/18/19 07:36 Norvasc PO 02/17/19 08:59 10 mg DAILY ROXI Administration Atenolol 50 mg 01/18/19 09:00 01/18/19 07:36 Tenormin PO 02/17/19 08:59 50 mg DAILY ROXI Administration Lactated Ringer's 1,000 mls @ 125 mls/hr 01/17/19 19:00 01/18/19 11:14 Lr IV 02/16/19 18:59 125 mls/hr .Q8H ROXI Administration NPO Date Last Intake of Fluids: 01/17/19 Time Last Intake of Fluids: 08:30 Date Last Intake of Solids: 01/17/19 Time Last Intake of Solids: 08:30 Past Medical History Medical History HTN (hypertension) Autoimmune hepatitis Social History Smoking Status: Never smoker Do You Dip or Chew Tobacco: No Hx Alcohol Use: No (never used) Hx Substance Use: No (never used) Physical Exam Vital Signs Last Vital Signs Temp 37.2 C 01/18/19 15:21 Pulse 63 01/18/19 15:21 Resp 16 01/18/19 15:21 BP 144/60 H 01/18/19 15:21 Pulse Ox 94 01/18/19 15:21 Testing Laboratory Results 01/18/19 05:48 01/18/19 05:48 PT 11.5 Seconds (9.0-12.0) 01/17/19 11:58 INR 1.1 (0.9-1.1) 01/17/19 11:58 APTT 26.8 Seconds (21.0-31.0) 01/18/19 05:48 Hemoglobin A1c 13.1 % (4.5-5.6) H 01/17/19 11:58 Urine Color Yellow 01/17/19 12:30 Urine Appearance Clear (Clear) 01/17/19 12:30 Urine pH 5.0 (4.5-7.5) 01/17/19 12:30 Ur Specific [place] 1.041 (1.000-1.030) H 01/17/19 12:30 Urine Protein Negative (Negative) 01/17/19 12:30 Urine Glucose (UA) 3+ (Negative) H 01/17/19 12:30 Urine Ketones 1+ (Negative) H 01/17/19 12:30 Urine Nitrite Negative (Negative) 01/17/19 12:30 Ur Leukocyte Esterase Negative (Negative) 01/17/19 12:30 01/18/19 01/18/19 01/18/19 15:33 11:28 09:03 POC Glucose 191 H 183 H 158 H 01/18/19 01/18/19 01/18/19 08:47 08:14 07:57 POC Glucose 151 H 125 H 120 H 01/18/19 01/18/19 01/18/19 07:36 06:29 05:29 POC Glucose 117 H 164 H 131 H 01/18/19 04:26 POC Glucose 148 H
[2019-01-18] MEDS ORDERED: ATROPINE SULFATE 0.1 MG/ML 10ML SYR IV PRN (16:02)
[2019-01-18] MEDS ORDERED: ePHEDrine sulfate 50 MG/ML AMP IV PRN (16:02)
[2019-01-18] MEDS ORDERED: fentaNYL citrate 100 MCG/2 ML VIAL IV PRN (16:02)
--- NOTE | 2019-01-18 17:27 | Fluoroscopy Report ---
[place] ERCP biliary ductal HISTORY: 63 years-old Male ADD ON ERCP IN OR follow-up study in a patient with choledocholithiasis COMPARISON: CT abdomen and pelvis 01/17/2019 TECHNIQUE: 7 spot fluoroscopic images of the right upper quadrant abdomen were obtained utilizing 3 m inutes and 25 seconds fluoroscopy time FINDINGS: Endoscope noted within the duodenum. Cannulation of the common bile duct with inflation of a balloon. Subsequent sweeping of the common bile duct. Biliary ductal dilation redemonstrated. Last images dem onstrate placement of a stent within the common bile duct with distal portion extending into the duod enum. IMPRESSION: Fluoroscopic assistance as above. Please see procedural report for further details. The above report was generated using voice recognition software. It may contain grammatical, syntax o r spelling errors. Electronically signed by: Perez Almanzar M.D. 01/18/2019 5:24 PM
--- NOTE | 2019-01-18 17:32 | GI REPORT ---
Patient Name: Donal Melendez Procedure Date: 01/18/2019 3:52 PM Date of : 1955 Admit Type: Inpatient Age: 63 Gender: Male Attending MD: Mohan Sanchez MD Procedure: ERCP Providers: Mohan Sanchez MD Referring MD: Rupinder Phan Indications: Common bile duct stone(s), Elevated bilirubin Medicines: General Anesthesia Complications: No immediate complications. Estimated blood loss: Minimal. Estimated Blood Loss: Estimated blood loss was minimal. Procedure: Pre-Anesthesia Assessment: - The risks and benefits of the procedure and the sedation options and risks were discussed with the patient. All questions were answered and informed consent was obtained. - Patient identification and proposed procedure were verified prior to the procedure by the physician, the nurse and the underwater roboticist. The procedure was verified in the procedure room. After obtaining informed consent, the scope was passed under direct vision. Throughout the procedure, the patient's blood pressure, pulse, and oxygen saturations were monitored continuously. The SCOPE was introduced through the mouth, and advanced to the duodenum and used to inject contrast into the bile duct. The Endoscope was introduced through the mouth, and advanced to the duodenum and used to locate the major papilla. The ERCP was accomplished without difficulty. The patient tolerated the procedure well. Procedure and risks explained to patient which include but not limited to medication reaction, bleeding, perforation, aspiration , infectionm, and pancreatitis. . Judicious gas insufflation was used and gas removal done on the way out. The lumen was always visualized when advancing the scope. Prep was good. Washes and suctioning used as needed to get good visualization of the mucosa. Retroflexion to look at the fundus and cardia of the stomach and GE junction was done. Findings: The bottle house quality control technician film was normal. . ERCP scope was used to intubate the esophagus and with gentle pressure advanced to the major papilla Acrobat wire was passed into the biliary tree without any instrumentation of the pancreas ducat. The Omnitome was passed over the guidewire and the bile duct was then deeply cannulated. Contrast was injected. I personally interpreted the bile duct images. There was brisk flow of contrast through the ducts. Image quality was excellent. Contrast extended to the hepatic ducts. The common bile duct contained filling defect(s) thought to be a stone and sludge. The largest diameter was 15 mm. The common bile duct was diffusely dilated, with a stone causing an obstruction. The biliary sphincterotomy was extended to a total of 10 mm in length with a Fusion OMNI sphincterotome using blended current. There was self limited oozing from the sphincterotomy which did not require treatment. The biliary tree was swept with a 15 mm balloon starting at the bifurcation. One stone was removed. No obvious large stones remained. Sludge was swept from the duct as well as 10 mm CBD stone Because sludge continued to come out of the duct after several passes with the ballon it was elected to place a stent. One 10 Fr by 8 cm biliary stent with a single external flap and a single internal flap was placed into the common bile duct. The stent was in good position. . A the end of the ERCP blood noted in esophagus so switched to EGD scope. The esophagus was successfully intubated under direct vision without detailed examination of the pharynx, larynx, and associated structures. The scope was passed under direct vision through the upper GI tract. LA Grade A (one or more mucosal breaks less than 5 mm, not extending between tops of 2 mucosal folds) esophagitis with bleeding was found. One clip placed and no bleeding at end of procedure. The entire examined stomach was normal including retroflexion. A diverticulum was found in the area of the papilla. Multiple localized erosions with stigmata of recent bleeding (flat brown spot) were found in the first portion of the duodenum and in the second portion of the duodenum. Impression: - LA Grade A reflux and erosive esophagitis with bleeding noted post use of ERCP scope--clipped. - Normal stomach. - Duodenal diverticulum. - Duodenal erosions with stigmata of recent bleeding. - A filling defect consistent with a stone and sludge was seen on the cholangiogram. - The common bile duct was dilated, with a stone causing an obstruction. - Choledocholithiasis was found. Complete remova of obvious stonesl was accomplished by biliary sphincterotomy and balloon extraction. - One biliary stent was placed into the common bile duct because of continued sludge coming out post several passes of the balloon. Recommendation: - PPI for erosive esophagitis and duodenitis. Repeat ERCP in 6 weeks to sweep duct and remove stent. Needs lap hawk. Mohan Sanchez M.D. Mohan Sanchez MD 01/18/2019 5:31:47 PM This report has been signed electronically. Note Initiated On: 01/18/2019 3:52 PM Number of Addenda: 0 I attest to the content of the Intraoperative Record and orders documented therein, exceptions below {[id number]}
--- NOTE | 2019-01-18 17:58 | Anesthesiology Progress Note ---
Date of Service January 18, 2019 Anesthesia Post Procedure Vital Signs Vital Signs: Temp Pulse Pulse Resp BP BP Pulse Ox 01/18/19 17:48 67 16 127/63 95 01/18/19 17:40 66 18 136/59 L 99 01/18/19 17:30 69 19 133/59 L 98 01/18/19 17:24 36.6 C 72 16 134/70 97 01/18/19 15:21 37.2 C 63 16 144/60 H 94 01/18/19 07:21 36.7 C 57 L 18 115/69 96 01/17/19 22:52 36.5 C 62 18 99/65 L 92 01/17/19 18:53 37.2 C 74 18 102/67 93 01/17/19 18:00 75 18 125/65 94 Transfer of Care Handoff Completed per policy Notes Mental Status: alert / awake / arousable Patient Amnestic to Procedure: Yes Nausea / Vomiting: adequately controlled Pain: adequately controlled Airway Patency, RR, SpO2: stable & adequate BP & HR: stable & adequate Hydration State: stable & adequate Anesthetic Complications: no major complications apparent and Pt Satisfied with anesthetic care
[2019-01-18] MEDS ORDERED: INSULIN ASPART 100 UNITS/ML 3 ML PEN SC SCH (18:00)
--- NOTE | 2019-01-18 18:14 | Gastroenterology Progress Note ---
Date of Service January 18, 2019 Assessment & Plan (1) Choledocholithiasis: Pt when seen in PACU awake and no abd complaints. Abdomen soft. Went over results of ERCP in detail with and son in waitng room consult area. Recommend PPI for 6 weeks for erosive duodenitis and erosive esophagitis with repeat ERCP and sweep duct and stent removal. Recommend surg consult for lap hawk. Clear liquids tonight then advance as tolerated. Results & Data Vital Signs (Past 12 Hours) Vital Signs Temp Pulse Pulse Resp BP BP Pulse Ox 01/18/19 18:10 64 20 134/63 95 01/18/19 18:00 36.5 C 63 18 126/84 94 01/18/19 17:50 67 16 127/63 95 01/18/19 17:40 66 18 136/59 L 99 01/18/19 17:30 69 19 133/59 L 98 01/18/19 17:24 36.6 C 72 16 134/70 97 01/18/19 15:21 37.2 C 63 16 144/60 H 94 01/18/19 07:21 36.7 C 57 L 18 115/69 96
[2019-01-18] MEDS: INSULIN GLARGINE SOLOSTAR 100 UNITS/ML 3 ML PEN SC SCH (20:28)
[2019-01-18] MEDS: PANTOprazole 40 MG TAB PO SCH (20:31)
[2019-01-19] MEDS: INSULIN ASPART 100 UNITS/ML 3 ML PEN SC SCH ×5 (00:12→17:45)
[2019-01-19 06:04] LABS: Eosinophils # (auto) 0.01 K/uL (0-0.5); Eosinophils % (auto) 0.1 %; Hemoglobin 13.5 g/dL (14.0-18.0); Immature Granulocytes # (auto) 0.02 K/uL (0.00-0.02); Immature Granulocytes % (auto) 0.3 %; Lymphocytes # (auto) 0.74 K/uL (1.2-3.4); Lymphocytes % (auto) 10.4 %; Mean Corpuscular Hgb Conc 35.5 g/dL (32-36); Mean Corpuscular Volume 93.8 fL (80-100); Mean Platelet Volume 11.1 fL (7.4-10.4); Monocytes # (auto) 0.43 K/uL (0.11-0.59); Neutrophils # (auto) 5.92 K/uL (1.4-6.5); Neutrophils % (auto) 83.2 %; Platelet Count 201 K/uL (130-400); RDW Standard Deviation 44.9 fL (36.4-46.3); Red Blood Count 4.05 M/uL (4.7-6.1); White Blood Count 7.12 K/uL (4.8-10.8)
--- NOTE | 2019-01-19 06:34 | Surgery Consultation ---
Date of Consultation January 19, 2019 Assessment & Plan (1) Gallstone pancreatitis: I discussed the role of cholecystectomy with his history of common bile duct stone elevated lipase consistent with gallstone pancreatitis. He had many questions and I tried to answer most of them. He said "this is the first time I have heard of this." He is not sure he wants to have his gallbladder removed at this time. Normally he would try to proceed with laparoscopic cholecystectomy during this hospitali zation. I will come back later after he has been seen by his other doctors and they can help with the discussion. He does have a stent in place which gives him some security of gallstones traveling into his common bile duct. History of Present Illness Attending Physician: Rupinder Phan MD History of Present Illness Patient admitted with abdominal pain nausea and vomiting found with elevated liver function studies. A CT scan showed cholelithiasis and choledocholithias is. Patient underwent ERCP yesterday with recovery of common bile duct stone and stent placement. I was asked to see the patient for possible cholecystectomy. Has had significantly elevated blood sugars. Allergies Allergy/AdvReac Type Severity Reaction Status Date / Time No Known Allergies Allergy Unverified 01/17/19 11:47 Home Medications Home Medications Medication Instructions Recorded Confirmed Type amlodipine 10 mg PO DAILY 01/17/19 01/17/19 History atenolol 50 mg PO DAILY 01/17/19 01/17/19 History azithromycin 250 mg PO DIRECTED 01/17/19 01/17/19 History lisinopril 10 mg PO DAILY 01/17/19 01/17/19 History metformin 500 mg PO BID 01/17/19 01/17/19 History simvastatin 40 mg PO PM 01/17/19 01/17/19 History zolpidem [Ambien] 5 mg PO HS PRN 01/17/19 01/17/19 History Patient History Medical History HTN (hypertension) Autoimmune hepatitis Social History Preferred Language: Wolof Communication Ability: Effective Summer Camp Counselor Required: No Beliefs That Will Affect Care: Gnosticism Gnosticism Beliefs: Mormon marital status: Current Living Situation: Family Other Information That Helps Us Care for You: No Feels Safe at Home: Yes Safety Concerns: Feels Safe At This Time Smoking Status: Never smoker Do You Dip or Chew Tobacco: No Hx Alcohol Use: No (never used) Hx Substance Use: No (never used) Review of Systems Review of Systems: All systems reviewed & are unremarkable except as noted in HPI & below Physical Exam Physical Exam: Patient is currently in his hospital bed he is awake and alert he appears normal his affect is normal. He has no rashes his neck is supple he is breathing comfortably his heart rate has been regular. His abdomen is soft with minimal tenderness. His extremities are warm and well-perfused. Results & Data Vital Signs (Past 12 Hours) Vital Signs Temp Pulse Pulse Resp BP Pulse Ox 01/19/19 04:00 36.6 C 54 L 20 132/77 93 01/18/19 23:29 36.5 C 63 20 111/72 94 01/18/19 21:43 36.6 C 60 18 111/73 93 01/18/19 20:00 36.5 C 60 20 124/80 94 01/18/19 19:46 36.3 C L 65 18 119/79 93 01/18/19 19:14 36.5 C 68 18 114/75 92 01/18/19 18:40 36.7 C 63 18 116/75 94 I did review his CAT scan
[2019-01-19 06:37] LABS: Albumin Level 2.1 gm/dl (3.4-5.0); BUN Creatinine Ratio 26.5 (10-20); Calcium 8.9 mg/dl (8.5-10.1); Creatinine Clr Calc Pharmacy 88.1 ml/min; Est GFR (African American) 78.6; Est GFR (Non-African American) 67.8; Potassium 4.6 mmol/L (3.5-5.1)
[2019-01-19 06:43] LABS: Albumin Globulin Ratio 0.5 (0.9-2); Bilirubin,Total 1.7 mg/dl (0.2-1); Globulin 4.5 gm/dl (2.5-4.0); Total Protein 6.6 gm/dl (6.4-8.2)
[2019-01-19] MEDS: LACTATED RINGER'S 1,000 ML IV SCH (07:39)
[2019-01-19] MEDS: ATENOLOL 50 MG TABLET PO SCH (08:57)
[2019-01-19] MEDS: PANTOprazole 40 MG TAB PO SCH (08:59)
[2019-01-19] MEDS: AMLODIPINE BESYLATE 5 MG TAB PO SCH (08:59)
[2019-01-19] MEDS: INSULIN GLARGINE SOLOSTAR 100 UNITS/ML 3 ML PEN SC SCH (09:00)
[2019-01-19] MEDS ORDERED: PHARMACY GLYCEMIC MGMT CONSULT STA (09:43)
--- NOTE | 2019-01-19 09:48 | Family Medicine Progress Note ---
Date of Service January 19, 2019 Assessment & Plan (1) Choledocholithiasis: Donal is a 63-year-old male with past medical history of diabetes, hypertension, and recently diagnosed autoimmune hepatitis who presents with several months of nausea and vomiting without abdominal pain. Initial eval uation shows uncontrolled diabetes mellitus and colelithiasis/choledocholithiasis without cholecystitis. Choledocholithiasis/cholecystitis CTA/P shows cholelithiasis/choledocholithiasis with gallbladder distention, moderate intrahepatic and extrahepatic biliary ductal dilation. Common bile duct dilation to 1.5 cm. - No signs of cholecystitis on imaging, patient is afebrile without leukocytos is. No abdominal pain, Malcolm's negative Increased total bilirubin, mild transaminitis, increased alkaline phosphatase, increased lipase likely due to above. 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 Convert to subcu insulin tomorrow after 24 evaluation of sensitivity and requirements. - Will require increased control on d/c. Dual/Triple therapy vs Insulin adjunct depending on his requirements and A1C. Autoimmune hepatitis with transaminitis Recently diagnosed as outpatient GI aware during consult. Does not require MRCP prior to ERCP. Do not recommend any testing at this time pending records. No treatment at this time. Transaminitis may also be due to cholelithiasis as noted above. -Pending recent records and lab work to be faxed from his PCP in [place], [place]. 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 Per their labs reference range a moderate to strong positive is greater than 30, negative is 0-19, 20-30 is weak positive/equivocal. Prerenal azotemia, resolved Serum creatinine 1.45 on admission. Normalized to 1.16 today Hypertension Continue HAND MIXER amlodipine 10 mg p.o. daily Continue atenolol 50 mg p.o. daily Resumed lisinopril 10 mg p.o. daily starting tomorrow Hyperlipidemia HAND MIXER simvastatin 40 mg held in the setting of transaminitis Records from PCP pending, may benefit from conversion to atorvastatin 40 once transaminitis resolves. Diet: N.p.o. DVT prophylaxis: SCDs. No pharmacologic anticoagulation in anticipation of GI procedures. CODE STATUS: Full code Results & Data Vital Signs (Past 12 Hours) Vital Signs Temp Pulse Resp BP Pulse Ox 01/19/19 07:43 36.4 C L 55 L 20 131/79 94 01/19/19 04:00 36.6 C 54 L 20 132/77 93 01/18/19 23:29 36.5 C 63 20 111/72 94 01/18/19 21:43 36.6 C 60 18 111/73 93 Laboratory Results 01/19/19 01/19/19 01/19/19 Range/Units 07:43 05:52 05:52 WBC 7.12 (4.8-10.8) K/uL RBC 4.05 L (4.7-6.1) M/uL Hgb 13.5 L (14.0-18.0) g/dL Hct 38.0 L (42-52) % MCV 93.8 (80-100) fL MCH 33.3 (25-34) pg MCHC 35.5 (32-36) g/dL RDW Std Deviation 44.9 (36.4-46.3) fL RDW Coeff of Cynthia 13.0 (11.5-14.5) % Plt Count 201 (130-400) K/uL MPV 11.1 H (7.4-10.4) fL Immature Gran % (Auto) 0.3 % Neut % (Auto) 83.2 % Lymph % (Auto) 10.4 % [place] % (Auto) 6.0 % Eos % (Auto) 0.1 % Baso % (Auto) 0.0 % Immature Gran # (Auto) 0.02 (0.00-0.02) K/uL Neut # (Auto) 5.92 (1.4-6.5) K/uL Lymph # (Auto) 0.74 L (1.2-3.4) K/uL [place] # (Auto) 0.43 (0.11-0.59) K/uL Eos # (Auto) 0.01 (0-0.5) K/uL Baso # (Auto) 0.00 (0-0.2) K/uL Sodium 137 (136-145) mmol/L Potassium 4.6 D (3.5-5.1) mmol/L Chloride 103 (98-107) mmol/L Carbon Dioxide 27 (21-32) mmol/L Anion Gap 7.0 (3-11) BUN 30 H (7-18) mg/dl Creatinine 1.13 (0.6-1.4) mg/dl Est Cr Clr Drug Dosing 88.1 ml/min Est GFR ( Amer) 78.6 Est GFR (Non-Af Amer) 67.8 BUN/Creatinine Ratio 26.5 H (10-20) Glucose 248 H (70-99) mg/dl POC Glucose 217 H (70-99) Calcium 8.9 (8.5-10.1) mg/dl Total Bilirubin 1.7 H D (0.2-1) mg/dl AST 83 H (15-37) U/L ALT 119 H (12-78) U/L Alkaline Phosphatase 592 H (45-117) U/L Total Protein 6.6 (6.4-8.2) gm/dl Albumin 2.1 L (3.4-5.0) gm/dl Globulin 4.5 H (2.5-4.0) gm/dl Albumin/Globulin Ratio 0.5 L (0.9-2) Lipase 169 (73-393) U/L 01/19/19 01/19/19 01/18/19 Range/Units 03:50 00:09 23:58 WBC (4.8-10.8) K/uL RBC (4.7-6.1) M/uL Hgb (14.0-18.0) g/dL Hct (42-52) % MCV (80-100) fL MCH (25-34) pg MCHC (32-36) g/dL RDW Std Deviation (36.4-46.3) fL RDW Coeff of Cynthia (11.5-14.5) % Plt Count (130-400) K/uL MPV (7.4-10.4) fL Immature Gran % (Auto) % Neut % (Auto) % Lymph % (Auto) % [place] % (Auto) % Eos % (Auto) % Baso % (Auto) % Immature Gran # (Auto) (0.00-0.02) K/uL Neut # (Auto) (1.4-6.5) K/uL Lymph # (Auto) (1.2-3.4) K/uL [place] # (Auto) (0.11-0.59) K/uL Eos # (Auto) (0-0.5) K/uL Baso # (Auto) (0-0.2) K/uL Sodium (136-145) mmol/L Potassium (3.5-5.1) mmol/L Chloride (98-107) mmol/L Carbon Dioxide (21-32) mmol/L Anion Gap (3-11) BUN (7-18) mg/dl Creatinine (0.6-1.4) mg/dl Est Cr Clr Drug Dosing ml/min Est GFR ( Amer) Est GFR (Non-Af Amer) BUN/Creatinine Ratio (10-20) Glucose (70-99) mg/dl POC Glucose 251 H 320 H* 309 H* (70-99) Calcium (8.5-10.1) mg/dl Total Bilirubin (0.2-1) mg/dl AST (15-37) U/L ALT (12-78) U/L Alkaline Phosphatase (45-117) U/L Total Protein (6.4-8.2) gm/dl Albumin (3.4-5.0) gm/dl Globulin (2.5-4.0) gm/dl Albumin/Globulin Ratio (0.9-2) Lipase (73-393) U/L 01/18/19 01/18/19 01/18/19 Range/Units 23:56 20:07 20:04 WBC (4.8-10.8) K/uL RBC (4.7-6.1) M/uL Hgb (14.0-18.0) g/dL Hct (42-52) % MCV (80-100) fL MCH (25-34) pg MCHC (32-36) g/dL RDW Std Deviation (36.4-46.3) fL RDW Coeff of Cynthia (11.5-14.5) % Plt Count (130-400) K/uL MPV (7.4-10.4) fL Immature Gran % (Auto) % Neut % (Auto) % Lymph % (Auto) % [place] % (Auto) % Eos % (Auto) % Baso % (Auto) % Immature Gran # (Auto) (0.00-0.02) K/uL Neut # (Auto) (1.4-6.5) K/uL Lymph # (Auto) (1.2-3.4) K/uL [place] # (Auto) (0.11-0.59) K/uL Eos # (Auto) (0-0.5) K/uL Baso # (Auto) (0-0.2) K/uL Sodium (136-145) mmol/L Potassium (3.5-5.1) mmol/L Chloride (98-107) mmol/L Carbon Dioxide (21-32) mmol/L Anion Gap (3-11) BUN (7-18) mg/dl Creatinine (0.6-1.4) mg/dl Est Cr Clr Drug Dosing ml/min Est GFR ( Amer) Est GFR (Non-Af Amer) BUN/Creatinine Ratio (10-20) Glucose (70-99) mg/dl POC Glucose 337 H* 326 H* 326 H* (70-99) Calcium (8.5-10.1) mg/dl Total Bilirubin (0.2-1) mg/dl AST (15-37) U/L ALT (12-78) U/L Alkaline Phosphatase (45-117) U/L Total Protein (6.4-8.2) gm/dl Albumin (3.4-5.0) gm/dl Globulin (2.5-4.0) gm/dl Albumin/Globulin Ratio (0.9-2) Lipase (73-393) U/L 01/18/19 01/18/19 01/18/19 Range/Units 17:36 15:33 11:28 WBC (4.8-10.8) K/uL RBC (4.7-6.1) M/uL Hgb (14.0-18.0) g/dL Hct (42-52) % MCV (80-100) fL MCH (25-34) pg MCHC (32-36) g/dL RDW Std Deviation (36.4-46.3) fL RDW Coeff of Cynthia (11.5-14.5) % Plt Count (130-400) K/uL MPV (7.4-10.4) fL Immature Gran % (Auto) % Neut % (Auto) % Lymph % (Auto) % [place] % (Auto) % Eos % (Auto) % Baso % (Auto) % Immature Gran # (Auto) (0.00-0.02) K/uL Neut # (Auto) (1.4-6.5) K/uL Lymph # (Auto) (1.2-3.4) K/uL [place] # (Auto) (0.11-0.59) K/uL Eos # (Auto) (0-0.5) K/uL Baso # (Auto) (0-0.2) K/uL Sodium (136-145) mmol/L Potassium (3.5-5.1) mmol/L Chloride (98-107) mmol/L Carbon Dioxide (21-32) mmol/L Anion Gap (3-11) BUN (7-18) mg/dl Creatinine (0.6-1.4) mg/dl Est Cr Clr Drug Dosing ml/min Est GFR ( Amer) Est GFR (Non-Af Amer) BUN/Creatinine Ratio (10-20) Glucose (70-99) mg/dl POC Glucose 202 H 191 H 183 H (70-99) Calcium (8.5-10.1) mg/dl Total Bilirubin (0.2-1) mg/dl AST (15-37) U/L ALT (12-78) U/L Alkaline Phosphatase (45-117) U/L Total Protein (6.4-8.2) gm/dl Albumin (3.4-5.0) gm/dl Globulin (2.5-4.0) gm/dl Albumin/Globulin Ratio (0.9-2) Lipase (73-393) U/L Medications Administered Current Inpatient Medications Amlodipine Besylate (Norvasc) 10 mg PO DAILY ROXI Stop: 02/17/19 08:59 Last Admin: 01/19/19 08:59 Dose: 10 mg Documented by: Atenolol (Tenormin) 50 mg PO DAILY ROXI Stop: 02/17/19 08:59 Last Admin: 01/19/19 08:57 Dose: 50 mg Documented by: Dextrose (Dextrose 50%) 25 - 50 ml IV UD PRN; Protocol PRN Reason: Hypoglycemia Protocol Stop: 02/16/19 18:51 Glucagon (Glucagen) 1 mg SQ UD PRN; Protocol PRN Reason: Hypoglycemia Protocol Stop: 02/16/19 18:51 Glucose (Dex4 Glucose) 4 - 8 tabs PO UD PRN; Protocol PRN Reason: Hypoglycemia Protocol Stop: 02/16/19 18:51 Glucose (Glucose 40%) 15 - 30 gm PO UD PRN; Protocol PRN Reason: Hypoglycemia Protocol Stop: 02/16/19 18:51 Lactated Ringer's (Lr) 1,000 mls @ 125 mls/hr IV .Q8H ROXI Stop: 02/16/19 18:59 Last Admin: 01/19/19 07:39 Dose: 125 mls/hr Documented by: Insulin Aspart (Novolog Flexpen) 0 units SC ACHS ROXI Stop: 02/17/19 16:29 Last Admin: 01/19/19 09:02 Dose: 15 units Documented by: Insulin Glargine (Lantus Solostar Pen) 0 units SC BID ROXI; Protocol Stop: 02/17/19 20:59 Last Admin: 01/19/19 09:00 Dose: 30 units Documented by: Miscellaneous (Carbohydrates For Hypoglycemia) 15 - 30 gm PO UD PRN PRN Reason: Hypoglycemia Treatment Stop: 02/16/19 18:51 Miscellaneous Information (Consult Glycemic Management Pharmacy) 1 ea N/A UD PRN; Protocol PRN Reason: Consult Stop: 02/16/19 20:14 Ondansetron HCl (Zofran) 4 mg IV Q6H PRN PRN Reason: Nausea Stop: 02/16/19 18:51 Pantoprazole Sodium (Protonix) 40 mg PO BID [facility] Stop: 02/17/19 20:59 Last Admin: 01/19/19 08:59 Dose: 40 mg Documented by: PG Care Time/CCT Total # of Minutes Spent Total Time Spent with Patient: Total time spent is greater than 50% in coordination of care (as documented) at patient's floor/unit and/or counseling patient:
--- NOTE | 2019-01-19 10:13 | Anesthesiology Progress Note ---
Date of Service January 19, 2019 Anesthesia Post Procedure Vital Signs Vital Signs: Temp Pulse Pulse Resp BP BP Pulse Ox 01/19/19 07:43 36.4 C L 55 L 20 131/79 94 01/19/19 04:00 36.6 C 54 L 20 132/77 93 01/18/19 23:29 36.5 C 63 20 111/72 94 01/18/19 21:43 36.6 C 60 18 111/73 93 01/18/19 20:00 36.5 C 60 20 124/80 94 01/18/19 19:46 36.3 C L 65 18 119/79 93 01/18/19 19:14 36.5 C 68 18 114/75 92 01/18/19 18:40 36.7 C 63 18 116/75 94 01/18/19 18:25 36.4 C L 64 18 124/76 94 01/18/19 18:10 64 20 134/63 95 01/18/19 18:00 36.5 C 63 18 126/84 94 01/18/19 17:50 67 16 127/63 95 01/18/19 17:40 66 18 136/59 L 99 01/18/19 17:30 69 19 133/59 L 98 01/18/19 17:24 36.6 C 72 16 134/70 97 01/18/19 15:21 37.2 C 63 16 144/60 H 94 Transfer of Care Handoff Completed per policy Notes Mental Status: alert / awake / arousable and participated in evaluation Patient Amnestic to Procedure: Yes Nausea / Vomiting: adequately controlled Pain: adequately controlled Airway Patency, RR, SpO2: stable & adequate BP & HR: stable & adequate Hydration State: stable & adequate Anesthetic Complications: no major complications apparent and Pt Satisfied with anesthetic care
[2019-01-19] MEDS ORDERED: LISINOPRIL 20 MG TAB PO SCH (11:30)
--- NOTE | 2019-01-19 12:04 | Gastroenterology Progress Note ---
Date of Service January 19, 2019 Assessment & Plan (1) Choledocholithiasis: Abdomen soft. Went over results of ERCP . Maintained PPI for 6 weeks for erosive duodenitis and erosive esophagitis. ERCP and sweep duct and stent removal. Recommend cholecystectomy prior to stent removal. The stent should be removed by 10 weeks and can happen anytime after cholecystectomy. patient not wanting to remove the gall bladder now as he cannot be off work and is concerned about post surgical restrictions. D/W Dr. Manning and Sylvester. Subjective cc f/u vomiting, elev LFT, CBD stones HPI No abd pain. Feels good overall. Review of Systems Gastrointestinal: no abdominal pain Physical Exam Gastrointestinal (Abdomen): normal bowel sounds, soft, nontender, no hepatosplenomegaly Results & Data Vital Signs (Past 12 Hours) Vital Signs Temp Pulse Resp BP Pulse Ox 01/19/19 07:43 36.4 C L 55 L 20 131/79 94 01/19/19 04:00 36.6 C 54 L 20 132/77 93
[2019-01-19] MEDS ORDERED: INSULIN GLARGINE SOLOSTAR 100 UNITS/ML 3 ML PEN SC ONE (12:30)
--- NOTE | 2019-01-19 13:40 | Discharge Summary ---
Date of Service January 19, 2019 Admission HPI Per Admitting Provider Donal is a 63-year-old male with past medical history of diabetes, hypertension, and recently diagnosed autoimmune hepatitis who presents with several months of nausea and vomiting without abdominal pain. He reports that progressively increasing fatigue and continued vomiting or what caused him to present to the emergency department today. He has been told he had gallstones in the past and was to have a follow-up appointment with gastroenterology on February 11, but has clinically worsen before that appointment. He also endorses 50 pounds of weight loss since July in the setting of difficulty with oral intake. He reports his vomiting began in July and was initially induced with a greasy meal. It continued through August and October occurring about every 15 days. He notes some emesis after greasy foods and occasional posttussive emesis. All episodes of emesis have been randall/brown and without green/black/bilious appearance. He has had intermittent nausea with dry heaves over this timeframe. He reports his bowel movements have been normal, about once per day. No problems with diarrhea, constipation, or beroniac colored stools. He lives at his home in [place], [place] with his and son. Denies any current or previous alcohol use. Denies current or former tobacco use. Denies recreational drug use. Denies past surgical history including cholecystectomy Endorses a family history of fibromyalgia and "high blood sugar but not diabetes "in his mother. Denies history of colon cancer, liver disease, autoimmune disease, strokes, heart attacks, coronary artery disease, bleeding disorders in first-degree relatives. [facility] PCP: JANEEN Jean-Baptiste Admission Exam Per Admitting Provider General: A&Ox3. NAD. Cooperative. Laying in hospital bed. HEENT: Atraumatic, normocephalic. Pupils equally reactive to light and accommodation. Extraocular movements intact. Visual acuity grossly intact. Funduscopic exam reveals sharp optic disks without papilledema, good venous pulsations, no cotton-wool spots appreciated. No cervical adenopathy. No bruits. Pulm: CTAB A&P. -wheezes, -rales, -rhonchi. Symmetrical chest rise. No increase work of breathing. No respiratory distress. Cardiac: RRR, -mrg. Radial pulses intact and symmetrical. Abdominal: Obese, softly distended. Nontender to palpation. No hepatomegaly appreciated. Malcolm's negative. BS present. Extremity: Distal extremities intact, atraumatic. Moving all extremities equa lly. 5 out of 5 strength in all extremities including ankle plantar flexion/dorsiflexion, machine straw hat presser strength, interosseous strength, elbow flexion/extension, shoulder internal rotation/external rotation/f lexion/extension. Sensation intact in distal extremities. No sensory deficit to soft touch in fingers or toes. Principal Diagnosis Choledocholithiasis Discharge Exam General: No acute distress HEENT: Normocephalic atraumatic Neck: Normal visual inspection, trachea midline, negative JVD Cardiac: Regular rate and rhythm, no murmurs rubs or gallops, normal S1 normal S2, negative pedal edema, negative calf tenderness, excellent capillary refill Respiratory: Clear to auscultation bilaterally GI: Soft nontender, nondistended normal bowel sounds MSK: Moves all extremities Skin: No new rash Neuro: Alert and oriented although a bit odd Psych: Cooperative Discharge Data Allergies Allergy/AdvReac Type Severity Reaction Status Date / Time No Known Allergies Allergy Unverified 01/17/19 11:47 Consultations 01/17/19 14:50 ED Decision to Admit Stat 01/17/19 18:52 Consult Gastroenterology Routine 01/18/19 19:44 Consult General Surgery Routine Procedures Performed Operation Date: 01/18/19 08:20 Actual Procedures p Endoscopic Retrograde Cholangiopancreatogram, with sphincterotomy, stone removal and biliary stent placement, endoscopic gastroduodenoscopy - Mohan Sanchez Ordered Studies 01/17/19 11:55 CT abd pelvis wo con Stat 01/18/19 15:30 [place] ERCP biliary ductal Routine Hospital Course (1) Choledocholithiasis: Donal is a 63-year-old male with past medical history of diabetes, hypertension, and recently diagnosed autoimmune hepatitis who presents with several months of nausea and vomiting without abdominal pain. Initial evaluation shows uncontrolled diabetes mellitus and colelithiasis/choledocholithiasis without cholecystitis. Choledocholithiasis/cholecystitis On admission CT showed cholelithiasis with choledocholithiasis, gallbladder distention, intrahepatic and extrahepatic biliary ductal dilation. There were no signs of cholecystitis on imaging, patient remained afebrile without leuko cytosis or significant peritonitis. Labs demonstrated an increased total bilirubin, this, increased alkaline phosphatase, increased lipase. Patient had an ERCP performed on 01/18/2019 and with stent placement. Patient is currently refusing cholecystectomy and will follow up with general surgery as an outpatient. Patient will return in 6 weeks for repeat ERCP and stent removal along with laparoscopic cholecystectomy at that time. Patient is currently postop day 1 status post ERCP. continue PPI for 6 weeks for erosive duodenitis and erosive esophagitis Uncontrolled type 2 diabetes mellitus Elevated blood sugar on admission - ? to poorly controlled diabetes versus complications from choledocholithiasis. Patient reports that he was recently diagnosed with diabetes by his PA, and was started on metformin 500 mg daily. Patient did report an extensive history of feeling nauseous and vomiting poor energy fatigue amongst a number of other complaints concerning for diabetes. On admission his serum glucose was 635, he received 20 units of glargine and 20 units of aspart in the emergency department and was converted to an insulin drip on admission. He was converted to subcu insulin today he should see his primary care physician on discharge for further diabetes recommendations. On the day of discharge I spent approximately 45 minutes counseling the patient on starches sugars diet and exercise, patient appeared to be receptive. Will DC on metformin. A1c while hospitalized was 13.1 Autoimmune hepatitis with transaminitis Patient relates recently diagnosed with autoimmune hepatitis as an outpatient, per records from [place] anti-smooth muscle antibody testing was positive as 32. Elevated liver function studies due to choledocholithiasis and secondary to complications from diabetes. Likely also has beginning of nonalcoholic fatty liver disease. Stressed to the patient the need for lifestyle modification. Will defer further work-up to outpatient physician Prerenal azotemia, resolved Serum creatinine 1.45 on admission. Normalized to 1.16 today Hypertension Continue MAKE UP GIRL amlodipine 10 mg p.o. daily Continue atenolol 50 mg p.o. daily Resumed lisinopril 10 mg p.o. daily starting tomorrow Hyperlipidemia MAKE UP GIRL simvastatin 40 mg held in the setting of transaminitis Records from PCP pending, may benefit from conversion to atorvastatin 40 once transaminitis resolves. Diet: low fat DMII CODE STATUS: Full code Total Time Total Time Spent Total Time Spent (In Minutes): >30min Discharge Plan Discharge Items Patient Disposition: Home - Self-Care Reason For Visit: VOMITING, HYPERGLYCEMIA Discharge Diagnosis: Choledocholithiasis Discharge Goals: Decrease discomfort and Therapeutic intervention Activity: Resume your previous activity Non-emergency contact: Primary Care Provider Call non-emergency contact if: you have any medication questions, your pain is worsening and your temperature is above 101.5 Follow-up/Referrals: Guy Manning MD, FACS [Physician] - (my office will call you to discuss a plan for gallbladder surgery and also you may call us with any questions) PCP,NO [Primary Care Provider] - Diet: Carb Consistent or DM2, Heart Healthy, Low Fat and Low Sodium (2gm) Addtl Provider Instructions: Care instructions: You were admitted to [facility] for treatment of choledocholithiasis. A discharge summary will be sent to your primary care physician to ensure continuity of care.Please bring this discharge summary with you to your next office appointment so that your provider can review it at that time. Follow-up appointments: - Keep all your follow-up appointments as already scheduled. If you cannot make an appointment, notify your provider. - Please call to request a follow-up appointment with your primary care physician within one week of discharge. Please let us know if you are unable to obtain an appointment Medications: - Your medication list has been reviewed and reconciled upon discharge to ensure accuracy and continuity of care. - You are provided with a list of all your current medications at this time. Please review this list closely and make note of any changes. - Please take all of your medications exactly as prescribed. - Tell your primary care provider if you cannot afford your medications. - Call your primary care provider if you are having any side effects or any other problems. - Call your primary care provider before taking any over the counter medications or supplements, including herbals and vitamins, because some of these may interact with your current medications and/or make your symptoms worse. Symptoms: Please call your primary care provider for symptoms including, but not limited to: fevers (temperatures greater than 100.4), chills, intractable nausea or vomiting, diarrhea, rash, shortness of breath, bleeding, pain, or if you experience any worsening of the symptoms that brought you to the hospital. For EMERGENCY and VERY SERIOUS health-related issues, such as chest pain, shortness of breath, or sudden onset of the symptoms that brought you to the hospital, you may need to call 911 or go directly to the Emergency Room It has been our privilege to take care of you during your hospital stay. And Above All Else Fell Better! Best Wishes, Vivek Rocha MD PGY1 Resident, Family & Community Medicine [facility] Res[facility] at [facility] - [address], [address] : [address] [place] [address], [place] [address] Prescriptions: New metformin 500 mg tablet extended release 24 hr 1,000 mg PO BID 30 Days Qty: 120 RF: 0 pantoprazole 40 mg Tablet,Delayed Release (Dr/Ec) 40 mg PO BID 30 Days Qty: 60 RF: 3 Continued azithromycin 250 mg tablet 250 mg PO DIRECTED RF: 0 amlodipine 10 mg tablet 10 mg PO DAILY RF: 0 lisinopril 10 mg Tablet 20 mg PO DAILY RF: 0 zolpidem [Ambien] 5 mg Tablet 5 mg PO HS PRN (Reason: Sleep) RF: 0 atenolol 50 mg Tablet 50 mg PO DAILY RF: 0 simvastatin 40 mg Tablet 40 mg PO PM RF: 0 Discontinued metformin 500 mg Tablet 500 mg PO BID RF: 0 Stand-Alone Forms: [facility] [employer]/Other Patient Handouts: Hyperglycemia, Blood Sugar Check, Diabetes Healthy Meals, Diabetes Carbs, Diabetes Inspect Feet Discharge Orders: Discharge Order (Routine); Ordered 01/19/19 Ordered By: Vivek Rocha Admission Data Admit Date/Time: 01/17/19 16:38 Attending Provider: Rupinder Phan Admit Provider: Carlos Ochoa Primary Care Provider: PCP,NO Other Providers: Leon Culp ; Mohan Sanchez ; Colton Lewis Service: Medical Other Interventions: Discharge Summary Assessment (RN) Last Done: 01/19/19 16:34 DC Date/Time DO NOT enter until pt leaves facility: 01/19/19 18:01 Supervising Physician Co-Signing Physician Notes Resident Physician Supervision Note: I independently interviewed and examined the patient and verified the diaz history and physical, reviewed labs and image studies, discussed the case with the resident Dr. Rocha and agree with the findings and care plan. Time spent in discharge 40 min Resident Activity Tracking Resident Involvement: Resident Care Provided Care Provided: Adult Hospital Medicine
--- NOTE | 2019-01-19 13:41 | Pharmacy Report ---
Glycemic Control Progress Note - Date of Service January 19, 2019 - Scope Glycemic Pharmacist consulted for glycemic control to write orders per [facility] inpatient glycemic control protocol. - Objective Accuchecks BSG(last 24 hours):: 01/18/19 01/18/19 01/18/19 15:33 17:36 20:04 Glucose POC Glucose 191 H 202 H 326 H* 01/18/19 01/18/19 01/18/19 20:07 23:56 23:58 Glucose POC Glucose 326 H* 337 H* 309 H* 01/19/19 01/19/19 01/19/19 00:09 03:50 05:52 Glucose 248 H POC Glucose 320 H* 251 H 01/19/19 01/19/19 07:43 11:51 Glucose POC Glucose 217 H 222 H HbA1c:: Hemoglobin A1c 13.1 % (4.5-5.6) H 01/17/19 11:58 - Recent Pertinent Medications The patient is currently receiving: * Basal insulin: Lantus 20-30 units every 12 hours * Correctional Insulin: Novolog Correction per scale ACHS Goal Range: Low 110 mg/dL - High 140 mg/dL Correction Factor: 10 mg/dL/unit * Prandial insulin: Per carb ratio of 1 unit per 3 grams CHO consumed - Outpatient Anti-Diabetic Meds metformin 500 mg BID - Assessment & Plan ASSESSMENT: * See progress note from 01/18/19 for more background info, in short: * Pt receiving SQ basal bolus insulin regimen for hyperglycemia secondary to baseline DM (outpatient regimen on hold), dexamethasone 4 mg IV x 1 at 1522. * Patient is currently receiving an average of 82 units of insulin per day * 45 units of basal insulin * 37 units of prandial/correctional insulin * BSGs ranging 125 - 337 mg/dl over the past 24hrs * Changes needed to insulin regimen: * AM Fasting BSG = 217 mg/dl. This is above goal range for patient based on inpatient targets and co-morbidities--- was uncertain if patient would eat this morning. He received an extra 24 units of insulin overnight (mainly from hyperglycemia secondary to steroids). Once the patient did tolerate his diet, gave additional 10 units on top of 30 received today. Do not want to be basal heavy with hyperglycemia from steroids. Estimate that patient will require around weight-based stress of 3 for now. This will then decrease as time progresses. * Post-prandial BSGs are elevated. Tightened to CF of 10 and CR of 3 for now. Monitor closely and continue this. Expect this to need loosened by tomorrow. * Total daily dose = >100 units. PLAN FOR INPATIENT GLYCEMIC CONTROL: * Continuing Lantus 20-30 units SQ BID * BSG less than 140 mg/dL: 20 units * BSG 140-180 mg/dL: 25 units * BSG greater than 180 mg/dL: 30 units * TIGHTENING correction factor to 10 mg/dl/unit * TIGHTENING carb ratio to 1 unit per 3 grams CHO consumed * Continuing goal range of Low 110 mg/dL - High 140 mg/dL RECOMMENDATIONS FOR DISCHARGE: * will wait to see how patient progresses. picture is currently clouded by dexamethasone. * Please note that the plan above was derived based on current level of insulin resistance and hospital stress. These recommendations are appropriate for inpatient admission only. Plan of care upon discharge will need to be reassessed to avoid potential outpatient hypo/hyperglycemia. Thank you.
[2019-01-20] MEDS ORDERED: INSULIN ASPART 100 UNITS/ML 3 ML PEN SC SCH (02:00)
== END 2019-01-19 18:01 | disposition home or self-care (01) | DRG 445 ==
LOC: ED 10:23 → SUATTDRO 16:38 → 4E 16:38

== ENCOUNTER 2019-02-11 06:49 | Inpatient (IN) ==
--- NOTE | 2019-02-05 10:07 | Anesthesiology Consultation ---
Date of Service February 05, 2019 Assessment & Plan (1) Encounter for pre-operative examination: Surgeon's office made aware of severely elevated glucose and A1C. Made aware that case may be canceled AM DOS due to high blood sugar with patient's diabetes so uncontrolled. Case discussed with Dr. Lawrence. Pt was discharged on increased dose of Metformin (1,000mg BID), so glucose may be under better control by DOS. OK to proceed, especially because of concern for bile duct obstruction. CHECK BSG AM DOS Chart Review Chart Review: Acceptable Risk for Surgery and Patient NOT seen in Pre Admission Testing History Surgery Operation Date: 02/11/19 11:35 Proposed Procedures p Laparoscopic Cholecystectomy - Guy Manning MD, FACS Height/Weight Height: 6 ft Weight: 129.727 kg Allergies Allergy/AdvReac Type Severity Reaction Status Date / Time No Known Allergies Allergy Verified 02/05/19 07:45 Medications Home Medications Medication Instructions Recorded Confirmed Last Taken amlodipine 10 mg PO QAM 01/17/19 02/05/19 01/17/19 atenolol 50 mg PO QAM 01/17/19 02/05/19 01/17/19 lisinopril 20 mg PO QAM 01/17/19 02/05/19 01/17/19 simvastatin 40 mg PO PM 01/17/19 02/05/19 Unknown zolpidem [Ambien] 5 mg PO HS PRN 01/17/19 02/05/19 Unknown metformin 1,000 mg PO BID 30 Days #120 tab 01/19/19 02/05/19 Unknown Past Medical History Medical History Choledocholithiasis (Acute) HTN (hypertension) Autoimmune hepatitis Blurry vision Diabetes mellitus, type 2 VERY UNCONTROLLED. A1C 13.1% 01/17/19 (EAG 329). Glucose 248 on 01/19/19. Discharged on Metformin 1,000mg BID. Hyperlipidemia Obesity Past Family History Family History Grandmother (Maternal) Family history of diabetes mellitus Uncle Family history of diabetes mellitus Past Surgical History Surgical History History of ERCP 01/19/19. Galvan #2, ETT 7.5, grade view I. Atraumatic DL x 1. History of tonsillectomy and adenoidectomy Social History Smoking Status: Never smoker Do You Dip or Chew Tobacco: No Hx Alcohol Use: No (never used) Hx Substance Use: No (never used) Testing Laboratory Results 01/19/19 WBC: 7.12 H/H: 13.5/38.0 PLATELETS: 201 SODIUM: 137 POTASSIUM: 4.6 CHLORIDE: 103 CO2: 27 BUN: 30 CREATININE: 1.13 GLUCOSE: 248 01/17/19 PT: 11.5 PTT: 26.8 INR: 1.1 HgA1C: 13.1% SURGEON'S OFFICE NOTIFIED. Electrocardiogram Date: 01/17/19 Findings: + NSR @ (74) Possible left atrial enlargement. Left axis deviation. Cannot r/o anterior infa rct, age undetermined. Chest X-Ray Date: 01/17/19 IMPRESSION: 1. Mild asymmetric right hilar prominence is likely secondary to pulmonary vasculature versus adenopathy. Correlate with prior imaging. 2. Lungs appear clear.
[~2019-02-11 06:49] MED LIST: LR 15ML/HR IV SCH; cefUROXime 1,500 MG in DEXTROSE 5% 100 ML IV SCH
[2019-02-11] MEDS ORDERED: fentaNYL citrate 100 MCG/2 ML VIAL ONE ×2 (07:37→08:59)
[2019-02-11] MEDS ORDERED: MIDAZOLAM HCL 1 MG/ML 2ML VIAL ONE (07:37)
[2019-02-11] MEDS ORDERED: ePHEDrine sulfate 50 MG/ML AMP IV PRN (07:51)
[2019-02-11] MEDS ORDERED: fentaNYL citrate 100 MCG/2 ML VIAL IV PRN (07:51)
[2019-02-11] MEDS ORDERED: HYDROmorphone INJ 1 MG/ML SYRINGE IV PRN ×2 (07:51→09:52)
[2019-02-11] MEDS ORDERED: ATROPINE SULFATE 0.1 MG/ML 10ML SYR IV PRN (07:51)
[2019-02-11] MEDS ORDERED: ONDANSETRON INJ 2 MG/ML 2 ML VIAL IV PRN ×2 (07:51→09:52)
[2019-02-11] MEDS ORDERED: CONRAY 60% 50 ML VIAL ONE (08:23)
[2019-02-11] MEDS ORDERED: BUPIVACAINE 0.5 % 5 MG/1 ML MPF 30ML VIAL ONE (08:23)
[2019-02-11] MEDS ORDERED: ONDANSETRON INJ 2 MG/ML 2 ML VIAL ONE (09:02)
[2019-02-11] MEDS ORDERED: GLYCOPYRROLATE 0.2 MG/ML VIAL ONE (09:02)
[2019-02-11] MEDS ORDERED: PROPOFOL IV EMULSION 10 MG/ML 20 ML VIAL IV ONE (09:02)
[2019-02-11] MEDS ORDERED: NEOSTIGMINE METHYLSULFATE 5 MG/5 ML SYR ONE (09:02)
[2019-02-11] MEDS ORDERED: LIDOCAINE HCL 2% 2 ML VIAL/AMP(20MG/ML) INFIL ONE (09:02)
[2019-02-11] MEDS ORDERED: ROCURONIUM BROMIDE 10 MG/ML 5 ML VIAL ONE (09:02)
[2019-02-11] MEDS ORDERED: ACETAMINOPHEN 1,000 MG/100 ML VIAL IV ONE (09:52)
[2019-02-11] MEDS ORDERED: IBUPROFEN 600 MG TAB PO PRN (09:52)
[2019-02-11] MEDS ORDERED: PROMETHAZINE HCL 12.5 MG in SODIUM CHLORIDE 0.9% 50 ML IV PRN (09:52)
[2019-02-11] MEDS ORDERED: HYDROCODONE/ACETAMOPHEN 5/325MG TAB PO PRN (09:52)
[2019-02-11] MEDS ORDERED: PROMETHAZINE HCL 25 MG in SODIUM CHLORIDE 0.9% 50 ML IV PRN (09:52)
--- NOTE | 2019-02-11 09:52 | Operative Report ---
Post Operative Report Pre & Post Diagnosis Operation Date: 02/11/19 08:30 Pre-Op Diagnosis: Cholelithiasis, Choledocholithiasis Post-Op Diagnosis: Cholelithiasis, Choledocholithiasis Procedure Operation Date: 02/11/19 08:30 Actual Procedures p Laparoscopic Cholecystectomy(Not Applicable) - Guy Manning MD, FACS Surgeon Guy Manning MD, FACS [employer] Consultant Karla Gilmore Estimated Blood Loss 10 Findings Consistent with Post-Op Diagnosis Specimens gallbladder Description of Procedure see dictation I attest to the content of the Intraoperative Record and any orders documented therein. Any exceptions are noted below.
[2019-02-11] MEDS ORDERED: ZOLPIDEM TARTRATE 5 MG TAB PO PRN (09:56)
--- NOTE | 2019-02-11 10:46 | Anesthesiology Progress Note ---
Date of Service February 11, 2019 Anesthesia Post Procedure Vital Signs Vital Signs: Temp Pulse Pulse Resp BP Pulse Ox 02/11/19 10:35 37.0 C 60 16 142/73 H 94 02/11/19 10:25 37.0 C 60 10 L 139/72 96 02/11/19 10:15 37.0 C 63 14 135/69 97 02/11/19 10:05 37.0 C 64 10 L 138/71 97 02/11/19 09:55 37.0 C 63 16 152/81 H 97 02/11/19 07:32 36.7 C 58 L 18 131/73 95 Transfer of Care Handoff Completed per policy Notes Mental Status: alert / awake / arousable and participated in evaluation Patient Amnestic to Procedure: Yes Nausea / Vomiting: adequately controlled Pain: adequately controlled Airway Patency, RR, SpO2: stable & adequate BP & HR: stable & adequate Hydration State: stable & adequate Anesthetic Complications: no major complications apparent and Pt Satisfied with anesthetic care
[2019-02-11] MEDS ORDERED: DEXTROSE 50% 50 ML SYRINGE IV PRN (11:31)
[2019-02-11] MEDS ORDERED: GLUCOSE 40% GEL 15 GM TUBE PO PRN (11:31)
[2019-02-11] MEDS ORDERED: CARBOHYDRATES FOR HYPOGLYCEMIA PO PRN (11:31)
[2019-02-11] MEDS ORDERED: GLUCOSE 10 TABS/TUBE PO PRN (11:31)
[2019-02-11] MEDS ORDERED: GLUCAGON FOR INJ 1 MG VIAL SQ PRN (11:31)
[2019-02-11 11:56] LABS: Hematocrit (blood only) 40.2 % (42-52); Hemoglobin 13.8 g/dL (14.0-18.0); Mean Corpuscular Hgb Conc 34.3 g/dL (32-36); Mean Corpuscular Volume 93.9 fL (80-100); Mean Platelet Volume 9.9 fL (7.4-10.4); Platelet Count 146 K/uL (130-400); RDW Coefficient of Variation 13.8 % (11.5-14.5); RDW Standard Deviation 47.4 fL (36.4-46.3); Red Blood Count 4.28 M/uL (4.7-6.1); White Blood Count 3.79 K/uL (4.8-10.8)
[2019-02-11] MEDS: HYDROmorphone INJ 0.5 MG/0.5 ML SYR IV PRN (12:10)
[2019-02-11 12:16] LABS: Albumin Level 3.1 gm/dl (3.4-5.0); BUN Creatinine Ratio 12.1 (10-20); Calcium 8.9 mg/dl (8.5-10.1); Creatinine Clr Calc Pharmacy 107.8 ml/min; Est GFR (African American) 87.9; Est GFR (Non-African American) 75.9; Magnesium 2.1 mg/dl (1.8-2.4); Potassium 4.6 mmol/L (3.5-5.1)
[2019-02-11 12:19] LABS: Albumin Globulin Ratio 0.8 (0.9-2); Bilirubin,Total 0.7 mg/dl (0.2-1); Globulin 3.8 gm/dl (2.5-4.0); Total Protein 6.9 gm/dl (6.4-8.2)
--- NOTE | 2019-02-11 12:34 | Hospitalist Consultation ---
Date of Consultation February 11, 2019 Assessment & Plan (1) Choledocholithiasis: - Admitted 01/17-01/19 for choledocholithiasis related symptoms and had ERCP with CBD stent palcement; s/p lap hawk this morning. - Pain control per primary team. - DVT ppx currently held due to recent procedure. - Monitor CBC qAM to evaluate for acute blood loss. -needs to have repeat ERCP with stent removal-scheduled for 03/15 but pt wishes to reschedule for a later date due to his work schedule (2) Autoimmune hepatitis: Suspected diagnosis based on elevated anti-smooth muscle antibody testing as an outpt while undergoing workup for elevated LFTs - LFTs now WNL, will monitor. - Statin was d/c'ed 2 months ago by PCP at least temporarily -not clear if he truly has this diagnosis or not-likely all issues were from choledocholithiasis -f/u with GI as outpt (3) HTN (hypertension): BPs controlled - Continue home Lisinopril 20 mg daily, Amlodipine 10 mg daily and Atenolol 50 mg daily. (4) HLD (hyperlipidemia): - Statin was d/c'ed 2 months ago due to elevated LFTs. (5) Type II diabetes mellitus: - Hgb A1C was 13.1 on 01/17/19; pt. required insulin drip during admission 01/17-01/19. - On Metformin 1 gm BID at home -- reports BG levels have been well controlled. He has also made drastic dietary changes at home Blood glucose here is excellent now - SSI coverage as inpt; f/u with PCP to discuss BG management, obtain repeat A1C level. - Carb consistent diet as tolerated. (6) Erosive esophagitis: - Noted on recent scope; pt. was instructed to take PPI BID x 6 weeks but did not start as outpatient. - PPI BID ordered as inpt and sent to the pharmacy again for upon discharge (7) Duodenitis: - Noted on recent scope; PPI BID ordered. (8) Obesity: - Encourage weight loss and exercise. - His reports he lost ~60 lbs due to N/V. (9) Heart murmur: has mitral regurg type murmur on exam -f/u with PCP and have outpt ECHO ordered (10) DVT prophylaxis: - SCDs; holding pharmacologic ppx due to recent procedure with JESSE drain in palce Dispo: Pt. is medically stable, will sign off. Please call with any questions or concerns. Supervising Physician Co-Signing Physician Notes PA Supervision Note: I personally saw and examined the patient. I verified all diaz points and agree with LYNDSAY Pearl with the following exceptions and/or additions: Pt having some pain at surgical site, better with percocet Denies CP or SOB Bernardo po so far, no nausea History reviewed, ROS reviewed Vitals reviewed RRR +2/6 systolic murmur at LLSB and radiating to the apex CTAB no wcr Abd +BS, soft, +TTP over incision sites, soft, ND, dressings in place c/d/i, JESSE drain with serosang fluid Ext no calf tenderness, no edema Care plan as above -recommend ECHO as outpt for eval of mitral valve History of Present Illness Reason for Consultation: Medical Management Attending Physician: Guy Manning MD, [facility] History of Present Illness Mr. Murry is a 63 year old male with past medical history of uncontrolled Type II DM, HTN, Suspected Autoimmune hepatitis, HLD, obesity who presented for a planned lap hawk after recent admission for choledocholithiasis and cholangitis. Pt. is doing well post op -- he does complain of RUQ pain following surgery. He had right shoulder pain following procedure, now resolved. Denies chest pain, SOB, N/V, constipation or diarrhea. Allergies Allergy/AdvReac Type Severity Reaction Status Date / Time No Known Allergies Allergy Verified 02/11/19 07:54 Home Medications Home Medications Medication Instructions Recorded Confirmed Type amlodipine 10 mg PO QAM 01/17/19 02/11/19 History atenolol 50 mg PO QAM 01/17/19 02/11/19 History lisinopril 20 mg PO QAM 01/17/19 02/11/19 History zolpidem [Ambien] 5 mg PO HS PRN 01/17/19 02/11/19 History metformin 1,000 mg PO BID 30 Days #120 tab 01/19/19 02/11/19 Rx hydrocodone-acetaminophen [[place]] 1 - 2 tab PO Q6H PRN #30 tab 02/11/19 Rx pantoprazole [Protonix] 40 mg PO BID 30 Days #60 tab 02/11/19 Rx Patient History Medical History Choledocholithiasis (Acute) HTN (hypertension) Autoimmune hepatitis Blurry vision Diabetes mellitus, type 2 diet and oral medication controlled Hyperlipidemia Obesity Surgical History History of ERCP 01/19/19. [place] #2, ETT 7.5, grade view I. Atraumatic DL x 1. History of tonsillectomy and adenoidectomy Family History Grandmother (Maternal) Family history of diabetes mellitus Uncle Family history of diabetes mellitus Social History Preferred Language: Iranian Communication Ability: Effective Beliefs That Will Affect Care: None marital status: Current Living Situation: Spouse Feels Safe at Home: Yes Smoking Status: Never smoker Do You Dip or Chew Tobacco: No Second Hand Exposure: No Hx Alcohol Use: No (never used) Hx Substance Use: No (never used) Review of Systems Review of Systems: All systems reviewed & are unremarkable except as noted in HPI & below Constitutional: no fever, no chills, no fatigue and no weakness Respiratory: no cough, no dyspnea, no dyspnea on exertion and no wheezing Cardiovascular: no chest pain, no palpitations and no edema Gastrointestinal: + abdominal pain; no nausea, no vomiting, no constipation and no diarrhea/loose stools Genitourinary: no difficulty urinating Musculoskeletal: no back pain and no joint pain Integumentary: no non-healing lesions Allergy / Immunological: no rash Physical Exam Physical Exam: General: Resting comfortably HEENT: NC/AT; PERRLA with EOMI; [place] conjunctiva, MMM. No erythema of posterior pharynx Neck: Supple and nontender Cardiac: RRR Lungs: CTA bilaterally Abdomen: Bowel normoactive X 4; Nontender to palpation Extremities: Warm. No edema present Neuro: No focal weakness Skin: No rash Results & Data Vital Signs (Past 12 Hours) Vital Signs Temp Pulse Pulse Pulse Resp BP Pulse Ox 02/11/19 12:15 36.5 C 60 16 138/79 95 02/11/19 11:45 36.4 C L 56 L 16 134/80 94 02/11/19 11:15 36.5 C 58 L 16 137/77 94 02/11/19 10:55 36.9 C 58 L 11 L 141/70 H 90 02/11/19 10:45 37.0 C 58 L 11 L 143/73 H 96 02/11/19 10:35 37.0 C 60 16 142/73 H 94 02/11/19 10:25 37.0 C 60 10 L 139/72 96 02/11/19 10:15 37.0 C 63 14 135/69 97 02/11/19 10:05 37.0 C 64 10 L 138/71 97 02/11/19 09:55 37.0 C 63 16 152/81 H 97 02/11/19 07:32 36.7 C 58 L 18 131/73 95 Laboratory Results 02/11/19 02/11/19 02/11/19 Range/Units 12:11 11:44 11:44 WBC 3.79 L (4.8-10.8) K/uL RBC 4.28 L (4.7-6.1) M/uL Hgb 13.8 L (14.0-18.0) g/dL Hct 40.2 L (42-52) % MCV 93.9 (80-100) fL MCH 32.2 (25-34) pg MCHC 34.3 (32-36) g/dL RDW Std Deviation 47.4 H (36.4-46.3) fL RDW Coeff of Cynthia 13.8 (11.5-14.5) % Plt Count 146 (130-400) K/uL MPV 9.9 (7.4-10.4) fL Sodium 140 (136-145) mmol/L Potassium 4.6 (3.5-5.1) mmol/L Chloride 108 H (98-107) mmol/L Carbon Dioxide 29 (21-32) mmol/L Anion Gap 4.0 (3-11) BUN 13 (7-18) mg/dl Creatinine 1.03 (0.6-1.4) mg/dl Est Cr Clr Drug Dosing 107.8 ml/min Est GFR ( Amer) 87.9 Est GFR (Non-Af Amer) 75.9 BUN/Creatinine Ratio 12.1 (10-20) Glucose 131 H (70-99) mg/dl POC Glucose 121 H (70-99) Calcium 8.9 (8.5-10.1) mg/dl Magnesium 2.1 (1.8-2.4) mg/dl Total Bilirubin 0.7 (0.2-1) mg/dl AST 32 (15-37) U/L ALT 33 (12-78) U/L Alkaline Phosphatase 113 (45-117) U/L Total Protein 6.9 (6.4-8.2) gm/dl Albumin 3.1 L (3.4-5.0) gm/dl Globulin 3.8 (2.5-4.0) gm/dl Albumin/Globulin Ratio 0.8 L (0.9-2) 02/11/19 02/11/19 Range/Units 09:58 07:23 WBC (4.8-10.8) K/uL RBC (4.7-6.1) M/uL Hgb (14.0-18.0) g/dL Hct (42-52) % MCV (80-100) fL MCH (25-34) pg MCHC (32-36) g/dL RDW Std Deviation (36.4-46.3) fL RDW Coeff of Cynthia (11.5-14.5) % Plt Count (130-400) K/uL MPV (7.4-10.4) fL Sodium (136-145) mmol/L Potassium (3.5-5.1) mmol/L Chloride (98-107) mmol/L Carbon Dioxide (21-32) mmol/L Anion Gap (3-11) BUN (7-18) mg/dl Creatinine (0.6-1.4) mg/dl Est Cr Clr Drug Dosing ml/min Est GFR ( Amer) Est GFR (Non-Af Amer) BUN/Creatinine Ratio (10-20) Glucose (70-99) mg/dl POC Glucose 124 H 128 H (70-99) Calcium (8.5-10.1) mg/dl Magnesium (1.8-2.4) mg/dl Total Bilirubin (0.2-1) mg/dl AST (15-37) U/L ALT (12-78) U/L Alkaline Phosphatase (45-117) U/L Total Protein (6.4-8.2) gm/dl Albumin (3.4-5.0) gm/dl Globulin (2.5-4.0) gm/dl Albumin/Globulin Ratio (0.9-2) PG Care Time/CCT Total # of Minutes Spent Total Time Spent with Patient: Total time spent is greater than 50% in coordination of care (as documented) at patient's floor/unit and/or counseling patient:
[2019-02-11] MEDS: PANTOprazole 40 MG TAB PO SCH ×2 (12:50→19:59)
[2019-02-11] MEDS: INSULIN ASPART 100 UNITS/ML 3 ML PEN SC SCH ×3 (12:53→20:37)
--- NOTE | 2019-02-11 14:10 | Operative Report ---
DATE OF OPERATION: 02/11/2019 NAME OF OPERATION: Laparoscopic cholecystectomy. PREOPERATIVE DIAGNOSES: Cholelithiasis, choledocholithiasis and gallstone pancreatitis. POSTOPERATIVE DIAGNOSIS: Chronic cholecystitis. STAFF SURGEON: Guy Manning MD ANESTHESIA: General. CASINO CASHIER MANAGER: Papi Gilmore PA-C DESCRIPTION OF PROCEDURE: The patient was brought in the operating room and placed on the operating table in supine position. His abdomen was prepped and draped in usual fashion. My bilingual legal assistant helped with prepping, draping, removal of the gallbladder and closure of the wounds. The patient had a prior episode of cholangitis and gallstone pancreatitis, for which he underwent ERCP and stent placement. He is now for gallbladder surgery. 0.5% plain Marcaine was used to anesthetize all incisions. Incision was made just above the umbilicus, carrying dissection down, placing a Veress needle producing pneumoperitoneum, placing an 11 mm port at this level and then under visualization three 5 mm ports were placed, 1 cephalad and 2 laterally. Gallbladder was grasped and retracted. Dissection was carried out the evens hepatis. The patient did have chronic scar tissue in the evens hepatis and there was some difficulty dissecting out the cystic duct and cystic artery, but I was able to do this. They were clipped and transected. The gallbladder was then dissected away from the liver bed in the usual fashion, encountering scar tissue. The gallbladder was placed in an Endobag. I felt that because of the dissection being somewhat difficult, we had placed a #15 round Ruddy-Carmona drain through the lateral 5 mm port site into the subhepatic space, secured to the skin using 3-0 nylon suture. The gallbladder was placed in an Endobag. The Endobag was then removed through the umbilical site. All ports were then removed. I did have to enlarge the fascial defect at the umbilicus to remove the gallbladder. Fascia at the umbilicus closed using 0 PDS suture. The skin at the umbilicus closed using 5-0 Prolene. The other sites closed using subcuticular 4-0 Monocryl and Steri-Strips. The patient was transferred to recovery room in stable condition. I attest to the content of the Intraoperative Record and any orders documented therein. Any exception s are noted below.
[2019-02-11] MEDS: SODIUM CHLORIDE 0.9% 1000ML 1,000 ML IV SCH (14:31)
[2019-02-11] MEDS: HYDROCODONE/ACETAMOPHEN 5/325MG TAB PO PRN ×2 (17:43→23:33)
[2019-02-11] MEDS: MAGNESIUM HYDROXIDE SUSP 30 ML UDC PO SCH (19:59)
[2019-02-11] MEDS: DOCUSATE SODIUM/SENNA 50/8.6MG TAB PO SCH (19:59)
[2019-02-12] MEDS: HYDROmorphone INJ 0.5 MG/0.5 ML SYR IV PRN ×2 (00:48→11:35)
[2019-02-12] MEDS ORDERED: Nursing to Pharmacy Communication ONE (02:09)
[2019-02-12 06:13] LABS: Basophils # (auto) 0.01 K/uL (0-0.2); Basophils % (auto) 0.1 %; Eosinophils # (auto) 0.05 K/uL (0-0.5); Eosinophils % (auto) 0.5 %; Hematocrit (blood only) 39.3 % (42-52); Hemoglobin 13.4 g/dL (14.0-18.0); Immature Granulocytes # (auto) 0.02 K/uL (0.00-0.02); Immature Granulocytes % (auto) 0.2 %; Lymphocytes # (auto) 0.92 K/uL (1.2-3.4); Lymphocytes % (auto) 9.1 %; Mean Corpuscular Hgb Conc 34.1 g/dL (32-36); Mean Corpuscular Volume 94.5 fL (80-100); Mean Platelet Volume 10.3 fL (7.4-10.4); Monocytes # (auto) 0.98 K/uL (0.11-0.59); Monocytes % (auto) 9.6 %; Neutrophils # (auto) 8.18 K/uL (1.4-6.5); Neutrophils % (auto) 80.5 %; Platelet Count 143 K/uL (130-400); RDW Coefficient of Variation 13.9 % (11.5-14.5); RDW Standard Deviation 47.5 fL (36.4-46.3); Red Blood Count 4.16 M/uL (4.7-6.1); White Blood Count 10.16 K/uL (4.8-10.8)
[2019-02-12 06:43] LABS: Albumin Level 2.6 gm/dl (3.4-5.0); BUN Creatinine Ratio 12.4 (10-20); Bilirubin Direct 0.4 mg/dl (0-0.2); Calcium 8.2 mg/dl (8.5-10.1); Creatinine Clr Calc Pharmacy 112.1 ml/min; Est GFR (African American) 92.2; Est GFR (Non-African American) 79.6; Potassium 4.4 mmol/L (3.5-5.1)
[2019-02-12 06:47] LABS: Albumin Globulin Ratio 0.7 (0.9-2); Bilirubin,Total 1.2 mg/dl (0.2-1); Globulin 3.7 gm/dl (2.5-4.0); Phosphorus 3.4 mg/dl (2.5-4.9); Total Protein 6.3 gm/dl (6.4-8.2)
--- NOTE | 2019-02-12 07:35 | Progress Note ---
Date of Service February 12, 2019 Assessment & Plan (1) Chronic cholecystitis: pt had fever now normal, also N/V with [place] drainage cloudy yellow ( ? chylous ascites or bilious )- dissection difficult secondary to chronic inflammation . Check labs on fluid check Hida for leak- keep in hospital cont atbx Subjective see a/p Results & Data Vital Signs (Past 12 Hours) Vital Signs Temp Pulse Resp BP BP Pulse Ox 02/12/19 06:59 36.6 C 60 19 124/73 90 02/12/19 03:20 36.7 C 58 L 16 132/53 L 95 02/11/19 23:13 37.6 C H 71 18 119/69 91 02/11/19 20:08 91 02/11/19 20:07 36.9 C 84 L 02/11/19 20:00 38.6 C H 71 20 150/79 H 91
[2019-02-12] MEDS: AMLODIPINE BESYLATE 5 MG TAB PO SCH (08:29)
[2019-02-12] MEDS: LISINOPRIL 20 MG TAB PO SCH (08:29)
[2019-02-12] MEDS: DOCUSATE SODIUM/SENNA 50/8.6MG TAB PO SCH ×2 (08:30→20:58)
[2019-02-12] MEDS: MAGNESIUM HYDROXIDE SUSP 30 ML UDC PO SCH ×2 (08:30→20:58)
[2019-02-12] MEDS: ATENOLOL 50 MG TABLET PO SCH (08:30)
[2019-02-12] MEDS: ENOXAPARIN INJ 40 MG/0.4 ML SYR SQ SCH (08:30)
[2019-02-12] MEDS: PANTOprazole 40 MG TAB PO SCH ×2 (08:30→20:58)
[2019-02-12] MEDS: INSULIN ASPART 100 UNITS/ML 3 ML PEN SC SCH ×4 (08:32→21:00)
--- NOTE | 2019-02-12 08:37 | Anesthesiology Progress Note ---
Date of Service February 12, 2019 Anesthesia Post Procedure Vital Signs Vital Signs: Temp Pulse Pulse Pulse Resp BP BP 02/12/19 06:59 36.6 C 60 19 124/73 02/12/19 03:20 36.7 C 58 L 16 132/53 L 02/11/19 23:13 37.6 C H 71 18 119/69 02/11/19 20:08 02/11/19 20:07 36.9 C 02/11/19 20:00 38.6 C H 71 20 150/79 H 02/11/19 15:01 36.5 C 57 L 20 148/78 H 02/11/19 14:15 36.4 C L 55 L 22 132/83 02/11/19 13:15 36.3 C L 55 L 16 130/70 02/11/19 12:15 36.5 C 60 16 138/79 02/11/19 11:45 36.4 C L 56 L 16 134/80 02/11/19 11:15 36.5 C 58 L 16 137/77 02/11/19 10:55 36.9 C 58 L 11 L 141/70 H 02/11/19 10:45 37.0 C 58 L 11 L 143/73 H 02/11/19 10:35 37.0 C 60 16 142/73 H 02/11/19 10:25 37.0 C 60 10 L 139/72 02/11/19 10:15 37.0 C 63 14 135/69 02/11/19 10:05 37.0 C 64 10 L 138/71 02/11/19 09:55 37.0 C 63 16 152/81 H Pulse Ox 02/12/19 06:59 90 02/12/19 03:20 95 02/11/19 23:13 91 02/11/19 20:08 91 02/11/19 20:07 84 L 02/11/19 20:00 91 02/11/19 15:01 95 02/11/19 14:15 94 02/11/19 13:15 95 02/11/19 12:15 95 02/11/19 11:45 94 02/11/19 11:15 94 02/11/19 10:55 90 02/11/19 10:45 96 02/11/19 10:35 94 02/11/19 10:25 96 02/11/19 10:15 97 02/11/19 10:05 97 02/11/19 09:55 97 Pain Intensity Upper Abdomen: Pain Intensity: 6 Right Upper Abdomen: Pain Intensity: 5 Notes Mental Status: alert / awake / arousable and participated in evaluation Patient Amnestic to Procedure: Yes Nausea / Vomiting: see Notes below Pain: adequately controlled Airway Patency, RR, SpO2: stable & adequate BP & HR: stable & adequate Hydration State: stable & adequate Anesthetic Complications: no major complications apparent and Pt Satisfied with anesthetic care Notes: Patient states he vomitted at approximately 2300 last evening when taking po pain meds. Only one episode, resolved without treatment. Pain meds switched to IV and no further problem.
--- NOTE | 2019-02-12 12:05 | Nuclear Medicine Report ---
NUCLEAR MEDICINE HEPATOBILIARY SCAN HISTORY: Status post cholecystectomy. r/o bile leak COMPARISON: Abdomen and pelvis CT 01/17/2019. TECHNIQUE: Immediately following the intravenous administration of 5.2 mCi Tc-99m Choletec, dynamic a nterior abdominal imaging was performed. FINDINGS: Uniform hepatic tracer accumulation is shown. Prompt intrahepatic biliary excretion is seen. The gall bladder is surgically absent. The common bile duct and small bowel are visualized by 25 minutes. This appearance represents the normal sequence of biliary excretion. No extraluminal radiotracer to sugge st a bile leak. IMPRESSION: Status post cholecystectomy. No evidence for bile leak. Electronically signed by: Josep Neely M.D. 02/12/2019 12:03 PM
[2019-02-12] MEDS: SODIUM CHLORIDE 0.9% 1000ML 1,000 ML IV SCH (12:16)
[2019-02-12] MEDS: OXYCODONE HCL IR 5 MG TAB (IMMEDIATE RELEASE) PO PRN (15:36)
[2019-02-13] MEDS: HYDROmorphone INJ 0.5 MG/0.5 ML SYR IV PRN ×2 (03:14→22:49)
--- NOTE | 2019-02-13 06:14 | Progress Note ---
Date of Service February 13, 2019 Assessment & Plan (1) Chronic cholecystitis: afeb, no nausea, tolerating diet- min GI function no bm, min flatus, some belching- drainage- serous now, decreased bowel sounds req dose of Dilaudid a few hrs ago will see how he does today - possible d/c tomorrow if improved GI function check labs Subjective see a/p Results & Data Vital Signs (Past 12 Hours) Vital Signs Temp Pulse Resp BP Pulse Ox 02/12/19 22:52 70 20 91 02/12/19 22:48 36.7 C 70 20 112/71 84 L
[2019-02-13 06:19] LABS: Hematocrit (blood only) 42.6 % (42-52); Hemoglobin 14.1 g/dL (14.0-18.0); Mean Corpuscular Hgb Conc 33.1 g/dL (32-36); Mean Corpuscular Volume 98.2 fL (80-100); Mean Platelet Volume 10.3 fL (7.4-10.4); Platelet Count 142 K/uL (130-400); RDW Coefficient of Variation 14.1 % (11.5-14.5); RDW Standard Deviation 50.1 fL (36.4-46.3); Red Blood Count 4.34 M/uL (4.7-6.1); White Blood Count 9.63 K/uL (4.8-10.8)
[2019-02-13 06:20] LABS: Basophils # (auto) 0.02 K/uL (0-0.2); Basophils % (auto) 0.2 %; Eosinophils # (auto) 0.09 K/uL (0-0.5); Eosinophils % (auto) 0.9 %; Immature Granulocytes # (auto) 0.02 K/uL (0.00-0.02); Immature Granulocytes % (auto) 0.2 %; Lymphocytes # (auto) 0.97 K/uL (1.2-3.4); Lymphocytes % (auto) 10.1 %; Monocytes # (auto) 0.91 K/uL (0.11-0.59); Monocytes % (auto) 9.4 %; Neutrophils # (auto) 7.62 K/uL (1.4-6.5); Neutrophils % (auto) 79.2 %; RBC Morphology Unremarkable
[2019-02-13] MEDS: SODIUM CHLORIDE 0.9% 1000ML 1,000 ML IV SCH (06:20)
[2019-02-13 06:28] LABS: Albumin Level 2.6 gm/dl (3.4-5.0); BUN Creatinine Ratio 16.8 (10-20); Bilirubin Direct 0.3 mg/dl (0-0.2); Calcium 8.5 mg/dl (8.5-10.1); Creatinine Clr Calc Pharmacy 118.1 ml/min; Est GFR (African American) 98.2; Est GFR (Non-African American) 84.7; Potassium 4.2 mmol/L (3.5-5.1)
[2019-02-13 06:30] LABS: Albumin Globulin Ratio 0.6 (0.9-2); Bilirubin,Total 0.9 mg/dl (0.2-1); Globulin 4.1 gm/dl (2.5-4.0); Total Protein 6.7 gm/dl (6.4-8.2)
[2019-02-13] MEDS: INSULIN ASPART 100 UNITS/ML 3 ML PEN SC SCH ×4 (08:56→21:47)
[2019-02-13] MEDS: ENOXAPARIN INJ 40 MG/0.4 ML SYR SQ SCH (09:21)
[2019-02-13] MEDS: MAGNESIUM HYDROXIDE SUSP 30 ML UDC PO SCH ×2 (09:29→21:48)
[2019-02-13] MEDS: AMLODIPINE BESYLATE 5 MG TAB PO SCH (09:31)
[2019-02-13] MEDS: PANTOprazole 40 MG TAB PO SCH ×2 (09:33→21:48)
[2019-02-13] MEDS: DOCUSATE SODIUM/SENNA 50/8.6MG TAB PO SCH ×2 (09:35→21:48)
[2019-02-13] MEDS: ATENOLOL 50 MG TABLET PO SCH (09:37)
[2019-02-13] MEDS: LISINOPRIL 20 MG TAB PO SCH (09:38)
--- NOTE | 2019-02-13 12:15 | XRay Report ---
XR chest 2V routine HISTORY: Hypoxia COMPARISON: Chest 01/17/2019. FINDINGS: The heart is normal in size. Bibasilar linear densities favor subsegmental atelectasis. Tra ce bilateral pleural effusions. The upper lung zones are clear. No evidence for pulmonary edema. IMPRESSION: 1. Trace bilateral pleural effusions. 2. Bibasilar linear densities. These are nonspecific but favor subsegmental atelectasis. A pneumonia could also have a similar appearance in the appropriate clinical setting. Electronically signed by: Josep Neely M.D. 02/13/2019 12:14 PM
--- NOTE | 2019-02-13 15:26 | Hospitalist Progress Note ---
Date of Service February 13, 2019 Assessment & Plan (1) Acute respiratory failure with hypoxia: - Has been requiring intermittent oxygen during this hospitalization -- 2- 3L via NC. - Concern for sleep apnea due to body habitus -- will complete overnight oximetry test tonight. - CXR showed atelectasis, trace bilat pleural effusions; did have low grade fevers, was neg for PNA. - Will continue to monitor O2 requirements. (2) Constipation: - Continue bowel regimen with Senokot S BID, MOM BID scheduled. (3) Choledocholithiasis: - Admitted 01/17-01/19 for choledocholithiasis related symptoms and had ERCP with CBD stent placement; s/p lap hawk on 02/11/19. - Cefoxitin q6hr for empiric coverage. - Pain control per primary team. - DVT ppx with Lovenox q24hr. - Monitor CBC - H/H has been stable. - Needs to have repeat ERCP with stent removal - scheduled for 03/15 but pt wishes to reschedule for a later date due to his work schedule. (4) Autoimmune hepatitis: - Suspected diagnosis based on elevated anti-smooth muscle antibody testing as an outpt while undergoing workup for elevated LFTs - LFTs mildly elevated post op; HIDA scan was negative for bile leak. - Statin was d/c'ed 2 months ago by PCP (temporary, can likely resume) - Not clear if he truly has this diagnosis or not - likely all issues were from choledocholithiasis - F/u with GI as outpatient. (5) HTN (hypertension): - Continue home Lisinopril 20 mg daily, Amlodipine 10 mg daily and Atenolol 50 mg daily. (6) HLD (hyperlipidemia): - Statin was d/c'ed 2 months ago due to elevated LFTs. (7) Type II diabetes mellitus: - Hgb A1C was 13.1 on 01/17/19; pt. required insulin drip during admission 01/17-01/19. - On Metformin 1 gm BID at home. - He has also made drastic dietary changes at home. BG has been well controlled during this admission. - SSI coverage; f/u with PCP as outpt. - Carb consistent diet. (8) Erosive esophagitis: - Noted on recent scope; pt. was instructed to take PPI BID x 6 weeks but did not start as outpatient. - PPI BID ordered as inpt and sent to the pharmacy again for upon discharge. (9) Duodenitis: - Noted on recent scope; PPI BID. (10) Obesity: - Encourage weight loss and exercise. - His reports he lost ~60 lbs due to N/V. (11) Heart murmur: - Has mitral regurg type murmur on exam - Will need to f/u with PCP for TTE. (12) DVT prophylaxis: - SCDs; Lovenox. Dispo: Will continue to follow, may require O2 arranged at discharge. Supervising Physician Co-Signing Physician Notes PA Supervision Note: I did not personally see or examine the patient today, but I verified all diaz points of LYNDSAY Pearl's assessment and plan with the following exceptions/additions: None Subjective Abd pain is now improved. Has not had a BM but is passing gas. He has been requiring O2 via NC intermittently -- concern for sleep apnea vs. other. Plan for overnight oximetry study this evening. Review of Systems Review of Systems: All systems reviewed & are unremarkable except as noted in HPI & below Constitutional: no fever, no chills, no fatigue, no weakness and no anorexia Respiratory: no cough, no dyspnea, no dyspnea on exertion and no wheezing Cardiovascular: no chest pain, no palpitations and no edema Gastrointestinal: + abdominal pain and + constipation; no nausea and no vomiting Genitourinary: no difficulty urinating Musculoskeletal: no back pain and no joint pain Integumentary: no non-healing lesions Physical Exam Physical Exam: General: Resting comfortably HEENT: NC/AT; PERRLA with EOMI; [place] conjunctiva, MMM. No erythema of posterior pharynx Neck: Supple and nontender Cardiac: RRR Lungs: on room air at time of exam; CTA bilaterally Abdomen: Mild distention; Bowel normoactive X 4; Nontender to palpation Extremities: Warm. No edema present Neuro: No focal weakness Skin: No rash Results & Data Vital Signs (Past 12 Hours) Vital Signs Temp Pulse Pulse Resp BP Pulse Ox 02/13/19 15:07 37 C 68 20 117/72 92 02/13/19 07:45 37.1 C 76 13 114/68 89 L Laboratory Results 02/13/19 02/13/19 02/13/19 Range/Units 12:07 08:12 05:42 WBC (4.8-10.8) K/uL RBC (4.7-6.1) M/uL Hgb (14.0-18.0) g/dL Hct (42-52) % MCV (80-100) fL MCH (25-34) pg MCHC (32-36) g/dL RDW Std Deviation (36.4-46.3) fL RDW Coeff of Cynthia (11.5-14.5) % Plt Count (130-400) K/uL MPV (7.4-10.4) fL Immature Gran % (Auto) % Neut % (Auto) % Lymph % (Auto) % [place] % (Auto) % Eos % (Auto) % Baso % (Auto) % Immature Gran # (Auto) (0.00-0.02) K/uL Neut # (Auto) (1.4-6.5) K/uL Lymph # (Auto) (1.2-3.4) K/uL [place] # (Auto) (0.11-0.59) K/uL Eos # (Auto) (0-0.5) K/uL Baso # (Auto) (0-0.2) K/uL RBC Morphology Sodium 137 (136-145) mmol/L Potassium 4.2 (3.5-5.1) mmol/L Chloride 103 (98-107) mmol/L Carbon Dioxide 29 (21-32) mmol/L Anion Gap 5.0 (3-11) BUN 16 (7-18) mg/dl Creatinine 0.94 (0.6-1.4) mg/dl Est Cr Clr Drug Dosing 118.1 ml/min Est GFR ( Amer) 98.2 Est GFR (Non-Af Amer) 84.7 BUN/Creatinine Ratio 16.8 (10-20) Glucose 137 H (70-99) mg/dl POC Glucose 149 H 138 H (70-99) Calcium 8.5 (8.5-10.1) mg/dl Total Bilirubin 0.9 (0.2-1) mg/dl Direct Bilirubin 0.3 H (0-0.2) mg/dl AST 20 (15-37) U/L ALT 28 (12-78) U/L Alkaline Phosphatase 91 (45-117) U/L Total Protein 6.7 (6.4-8.2) gm/dl Albumin 2.6 L (3.4-5.0) gm/dl Globulin 4.1 H (2.5-4.0) gm/dl Albumin/Globulin Ratio 0.6 L (0.9-2) 02/13/19 02/12/19 02/12/19 Range/Units 05:42 20:31 17:03 WBC 9.63 (4.8-10.8) K/uL RBC 4.34 L (4.7-6.1) M/uL Hgb 14.1 (14.0-18.0) g/dL Hct 42.6 (42-52) % MCV 98.2 (80-100) fL MCH 32.5 (25-34) pg MCHC 33.1 (32-36) g/dL RDW Std Deviation 50.1 H (36.4-46.3) fL RDW Coeff of Cynthia 14.1 (11.5-14.5) % Plt Count 142 (130-400) K/uL MPV 10.3 (7.4-10.4) fL Immature Gran % (Auto) 0.2 % Neut % (Auto) 79.2 % Lymph % (Auto) 10.1 % [place] % (Auto) 9.4 % Eos % (Auto) 0.9 % Baso % (Auto) 0.2 % Immature Gran # (Auto) 0.02 (0.00-0.02) K/uL Neut # (Auto) 7.62 H (1.4-6.5) K/uL Lymph # (Auto) 0.97 L (1.2-3.4) K/uL [place] # (Auto) 0.91 H (0.11-0.59) K/uL Eos # (Auto) 0.09 (0-0.5) K/uL Baso # (Auto) 0.02 (0-0.2) K/uL RBC Morphology Unremarkable Sodium (136-145) mmol/L Potassium (3.5-5.1) mmol/L Chloride (98-107) mmol/L Carbon Dioxide (21-32) mmol/L Anion Gap (3-11) BUN (7-18) mg/dl Creatinine (0.6-1.4) mg/dl Est Cr Clr Drug Dosing ml/min Est GFR ( Amer) Est GFR (Non-Af Amer) BUN/Creatinine Ratio (10-20) Glucose (70-99) mg/dl POC Glucose 163 H 124 H (70-99) Calcium (8.5-10.1) mg/dl Total Bilirubin (0.2-1) mg/dl Direct Bilirubin (0-0.2) mg/dl AST (15-37) U/L ALT (12-78) U/L Alkaline Phosphatase (45-117) U/L Total Protein (6.4-8.2) gm/dl Albumin (3.4-5.0) gm/dl Globulin (2.5-4.0) gm/dl Albumin/Globulin Ratio (0.9-2) PG Care Time/CCT Total # of Minutes Spent Total Time Spent with Patient: Total time spent is greater than 50% in coordinat ion of care (as documented) at patient's floor/unit and/or counseling patient:
[2019-02-14] MEDS: HYDROmorphone INJ 0.5 MG/0.5 ML SYR IV PRN (03:58)
--- NOTE | 2019-02-14 06:14 | Surgery Progress Note ---
Date of Service February 14, 2019 Assessment & Plan (1) Chronic cholecystitis: afeb, vitals stable- no bm, c/o Rt side, UQ pain seems to be rec more IV pain med will check CT abd/pelvis for fluid collection other pathology- other concern is hypoxia pablo while supine/ sleeping drainage is serous as one would see with ileus which is not unexpected in pt of his age, and comorbidity Subjective see a/p Results & Data Vital Signs (Past 12 Hours) Vital Signs Temp Pulse Pulse Pulse Resp BP Pulse Ox 02/13/19 22:59 36.7 C 64 17 117/73 90 02/13/19 21:24 69 02/13/19 21:20 68 Pulse Ox Pulse Ox 02/13/19 22:59 02/13/19 21:24 88 L 02/13/19 21:20 83 L PG Care Time/CCT Total # of Minutes Spent Total Time Spent with Patient: Total time spent is greater than 50% in coordination of care (as documented) at patient's floor/unit and/or counseling patient:
[2019-02-14 07:57] LABS: Hemoglobin 14.1 g/dL (14.0-18.0); Mean Corpuscular Hgb Conc 34.4 g/dL (32-36); Mean Corpuscular Volume 94.9 fL (80-100); Mean Platelet Volume 10.3 fL (7.4-10.4); Platelet Count 176 K/uL (130-400); RDW Coefficient of Variation 13.8 % (11.5-14.5); RDW Standard Deviation 47.8 fL (36.4-46.3); Red Blood Count 4.32 M/uL (4.7-6.1); White Blood Count 8.65 K/uL (4.8-10.8)
[2019-02-14 08:26] LABS: Albumin Level 2.6 gm/dl (3.4-5.0); BUN Creatinine Ratio 13.6 (10-20); Calcium 8.7 mg/dl (8.5-10.1); Creatinine Clr Calc Pharmacy 129.1 ml/min; Est GFR (African American) 105.5; Magnesium 2.3 mg/dl (1.8-2.4); Potassium 4.2 mmol/L (3.5-5.1)
[2019-02-14 08:30] LABS: Albumin Globulin Ratio 0.6 (0.9-2); Bilirubin,Total 0.9 mg/dl (0.2-1); Globulin 4.5 gm/dl (2.5-4.0); Total Protein 7.1 gm/dl (6.4-8.2)
[2019-02-14] MEDS ORDERED: OPTIRAY 320 125ml IV PRN (08:44)
--- NOTE | 2019-02-14 08:58 | CT Scan Report ---
CT abd pelvis oral and IV con CLINICAL HISTORY: Abdominal pain status post laparoscopic cholecystectomy. COMPARISON STUDY: 01/17/2019 TECHNIQUE: The patient was scanned following administration of dilute oral contrast, and in a dynamic helical fashion during intravenous administration of 1 18 cc of Optiray 320. A dose lowering techni que was utilized adhering to the principles of ALARA. CT DOSE: 1760.38 mGy.cm FINDINGS: Lower chest: There is a small right pleural effusion. There is a trace left pleural effusion. There a re bilateral lower lobe airspace opacities, likely atelectatic. Liver: There is pneumobilia. This is likely secondary to a common bile duct stent. There is trace per ihepatic fluid. There are no focal hepatic masses. The portal vein appears patent. There is mild alanis a surrounding the common bile duct, and there is mild common bile duct wall enhancement. The common b ile duct is mildly dilated measuring 10 mm. Gallbladder: Surgically absent. There is infiltration of the fat within the gallbladder bed. There ar e no dominant fluid collections to indicate an abscess. There is a subhepatic drain present. Spleen: Mildly enlarged measuring 14 cm Pancreas: Unremarkable. Adrenal glands: Unremarkable. Kidneys: There is a 2 mm nonobstructing right renal calculus. There is a 2 cm right renal cyst. Addit ional subcentimeter renal hypodensities are too small to characterize but likely represent additional cysts Bowel: There are no transition zones indicate bowel obstruction. There is no acute diverticulitis. Th ere is no acute appendicitis. Peritoneum: There is no intraperitoneal free air. There is trace free pelvic fluid there is infiltrat ion of the fat in the region of the gallbladder fossa, right paracolic gutter, and right perinephric space likely secondary to recent surgery. There is a tiny fat-containing umbilical hernia. Vasculature: The abdominal aorta is normal in course and caliber. Adenopathy: None. Pelvic viscera: The prostate is enlarged. Skeletal structures: No destructive osseous lesions are seen. IMPRESSION: 1. Interval development of a small right pleural effusion and trace left pleural effusion with depend ent basilar airspace opacities likely atelectatic 2. Interval cholecystectomy with placement of a biliary enteric stent and subhepatic drain 3. Mildly dilated common bile duct with wall enhancement. The enhancement could indicate inflammation or postsurgical change 4. Infiltration of fat in the region of the gallbladder fossa, right paracolic gutter and right perin ephric space, likely postsurgical. There are no defined fluid collections to indicate a drainable abs cess 5. Trace perihepatic fluid and trace free pelvic fluid 6. Pneumobilia consistent with the biliary stent. 7. No evidence of bowel obstruction. No evidence of free air. No evidence of acute diverticulitis. No evidence of acute appendicitis. 8. Prostatomegaly 9. Splenomegaly Electronically signed by: Milton Cabral M.D. 02/14/2019 8:57 AM
[2019-02-14] MEDS: ENOXAPARIN INJ 40 MG/0.4 ML SYR SQ SCH (09:50)
[2019-02-14] MEDS: PANTOprazole 40 MG TAB PO SCH ×2 (09:51→20:48)
[2019-02-14] MEDS: MAGNESIUM HYDROXIDE SUSP 30 ML UDC PO SCH (09:51)
[2019-02-14] MEDS: LISINOPRIL 20 MG TAB PO SCH (09:51)
[2019-02-14] MEDS: AMLODIPINE BESYLATE 5 MG TAB PO SCH (09:51)
[2019-02-14] MEDS: ATENOLOL 50 MG TABLET PO SCH (09:51)
[2019-02-14] MEDS: DOCUSATE SODIUM/SENNA 50/8.6MG TAB PO SCH ×2 (09:52→20:50)
[2019-02-14] MEDS: INSULIN ASPART 100 UNITS/ML 3 ML PEN SC SCH ×4 (09:52→20:48)
[2019-02-14] MEDS ORDERED: MAGNESIUM HYDROXIDE SUSP 30 ML UDC PO PRN (11:05)
--- NOTE | 2019-02-14 13:27 | Hospitalist Progress Note ---
Date of Service February 14, 2019 Assessment & Plan (1) Acute respiratory failure with hypoxia: - Has been requiring oxygen during this hospitalization -- 2-3L via [place]. - Concern for sleep apnea due to body habitus -- desatted on overnight oximetry study; will order 2L O2 via [place] qhs -- script also provided for supply oxygen qhs at home. Will need follow up sleep study as outpatient. - CXR showed trace bilat pleural effusions & basilar airspace opacities -- converted to Augmentin for coverage of abd infection and PNA. (2) Constipation: - Now resolved. (3) Choledocholithiasis: - Admitted 01/17-01/19 for choledocholithiasis related symptoms and had ERCP with CBD stent placement; s/p lap hawk on 02/11/19. - F/u CT A/P completed due to ongoing abd pain showed post surgical changes, trace abd fluid. - Augmentin BID for coverage -- continue abx at home. - Pain control per primary team - discharge on 02/15/19 if abd pain is improving. - DVT ppx with Lovenox q24hr. - Needs to have repeat ERCP with stent removal - scheduled for 03/15 but pt wishes to reschedule for a later date due to his work schedule. (4) Autoimmune hepatitis: - Suspected diagnosis based on elevated anti-smooth muscle antibody testing as an outpt while undergoing workup for elevated LFTs - LFTs mildly elevated post op; HIDA scan was negative for bile leak. - Statin was d/c'ed 2 months ago by PCP (temporary, can likely resume in future) - Not clear if he truly has this diagnosis or not - likely all issues were from choledocholithiasis - F/u with GI as outpatient. (5) HTN (hypertension): - Continue home Lisinopril 20 mg daily, Amlodipine 10 mg daily and Atenolol 50 mg daily. (6) HLD (hyperlipidemia): - Statin was d/c'ed 2 months ago due to elevated LFTs. (7) Type II diabetes mellitus: - Hgb A1C was 13.1 on 01/17/19; pt. required insulin drip during admission 01/17-01/19. - On Metformin 1 gm BID at home. - Also made drastic dietary changes at home. BG has been well controlled. - SSI coverage; f/u with PCP as outpt. - Carb consistent diet. (8) Erosive esophagitis: - Noted on recent scope; pt. was instructed to take PPI BID x 6 weeks but did not start as outpatient. - PPI BID ordered as inpt and sent to the pharmacy again for upon discharge. (9) Duodenitis: - Noted on recent scope; PPI BID. (10) Obesity: - Encourage weight loss and exercise. - His reports he lost ~60 lbs due to N/V. (11) Heart murmur: - Has mitral regurg type murmur on exam - Will need to f/u with PCP for TTE. (12) DVT prophylaxis: - SCDs; Lovenox. Dispo: Will continue to follow; script was provided for outpatient O2 qhs. PT/OT ordered. Supervising Physician Co-Signing Physician Notes PA Supervision Note: I did not personally see or examine the patient today, but I verified all diaz points of LYNDSAY Pearl's assessment and plan with the following exceptions/additions: None Subjective Pt. has ongoing abd pain -- used Dilaudid IV early this morning. CT A/P was negative. He is having large BMs. Is on room air this morning but O2 sat dropped overnight with oximetry study. Will need O2 arranged qhs at home. Review of Systems Review of Systems: All systems reviewed & are unremarkable except as noted in HPI & below Constitutional: no fever, no chills, no fatigue, no weakness and no anorexia Respiratory: no cough, no dyspnea and no dyspnea on exertion Cardiovascular: no chest pain, no palpitations and no edema Gastrointestinal: + abdominal pain; no nausea, no vomiting, no constipation and no diarrhea/loose stools Genitourinary: no difficulty urinating Musculoskeletal: no back pain and no joint pain Integumentary: no non-healing lesions Allergy / Immunological: no rash Physical Exam Physical Exam: General: Resting comfortably HEENT: NC/AT; PERRLA with EOMI; [place] conjunctiva, MMM. No erythema of posterior pharynx Neck: Supple and nontender Cardiac: RRR Lungs: on room air; CTA bilaterally Abdomen: No distention noted; BS normoactive x4; nontender to light palpation. Drain in place with minimal output. Extremities: Warm. No edema present Neuro: No focal weakness Skin: No rash Results & Data Vital Signs (Past 12 Hours) Vital Signs Temp Pulse Resp BP Pulse Ox 02/14/19 07:04 37.1 C 69 19 144/81 H 92 Laboratory Results 02/14/19 02/14/19 02/14/19 Range/Units 11:52 08:03 07:25 WBC (4.8-10.8) K/uL RBC (4.7-6.1) M/uL Hgb (14.0-18.0) g/dL Hct (42-52) % MCV (80-100) fL MCH (25-34) pg MCHC (32-36) g/dL RDW Std Deviation (36.4-46.3) fL RDW Coeff of Cynthia (11.5-14.5) % Plt Count (130-400) K/uL MPV (7.4-10.4) fL Sodium 136 (136-145) mmol/L Potassium 4.2 (3.5-5.1) mmol/L Chloride 101 (98-107) mmol/L Carbon Dioxide 31 (21-32) mmol/L Anion Gap 4.0 (3-11) BUN 12 (7-18) mg/dl Creatinine 0.86 (0.6-1.4) mg/dl Est Cr Clr Drug Dosing 129.1 ml/min Est GFR ( Amer) 105.5 Est GFR (Non-Af Amer) 91.0 BUN/Creatinine Ratio 13.6 (10-20) Glucose 120 H (70-99) mg/dl POC Glucose 173 H 133 H (70-99) Calcium 8.7 (8.5-10.1) mg/dl Magnesium 2.3 (1.8-2.4) mg/dl Total Bilirubin 0.9 (0.2-1) mg/dl AST 16 (15-37) U/L ALT 23 (12-78) U/L Alkaline Phosphatase 106 (45-117) U/L Total Protein 7.1 (6.4-8.2) gm/dl Albumin 2.6 L (3.4-5.0) gm/dl Globulin 4.5 H (2.5-4.0) gm/dl Albumin/Globulin Ratio 0.6 L (0.9-2) 02/14/19 02/13/19 02/13/19 Range/Units 07:25 20:35 17:34 WBC 8.65 (4.8-10.8) K/uL RBC 4.32 L (4.7-6.1) M/uL Hgb 14.1 (14.0-18.0) g/dL Hct 41.0 L (42-52) % MCV 94.9 (80-100) fL MCH 32.6 (25-34) pg MCHC 34.4 (32-36) g/dL RDW Std Deviation 47.8 H (36.4-46.3) fL RDW Coeff of Cynthia 13.8 (11.5-14.5) % Plt Count 176 (130-400) K/uL MPV 10.3 (7.4-10.4) fL Sodium (136-145) mmol/L Potassium (3.5-5.1) mmol/L Chloride (98-107) mmol/L Carbon Dioxide (21-32) mmol/L Anion Gap (3-11) BUN (7-18) mg/dl Creatinine (0.6-1.4) mg/dl Est Cr Clr Drug Dosing ml/min Est GFR ( Amer) Est GFR (Non-Af Amer) BUN/Creatinine Ratio (10-20) Glucose (70-99) mg/dl POC Glucose 151 H 135 H (70-99) Calcium (8.5-10.1) mg/dl Magnesium (1.8-2.4) mg/dl Total Bilirubin (0.2-1) mg/dl AST (15-37) U/L ALT (12-78) U/L Alkaline Phosphatase (45-117) U/L Total Protein (6.4-8.2) gm/dl Albumin (3.4-5.0) gm/dl Globulin (2.5-4.0) gm/dl Albumin/Globulin Ratio (0.9-2) PG Care Time/CCT Total # of Minutes Spent Total Time Spent with Patient: Total time spent is greater than 50% in coordination of care (as documented) at patient's floor/unit and/or counseling patient:
[2019-02-14] MEDS: OXYCODONE HCL IR 5 MG TAB (IMMEDIATE RELEASE) PO PRN ×2 (13:31→20:48)
[2019-02-14] MEDS: AMOXICILLIN/CLAVULANATE 875 MG TAB PO SCH (17:51)
[2019-02-15] MEDS: AMOXICILLIN/CLAVULANATE 875 MG TAB PO SCH (08:52)
[2019-02-15] MEDS: ENOXAPARIN INJ 40 MG/0.4 ML SYR SQ SCH (08:53)
[2019-02-15] MEDS: PANTOprazole 40 MG TAB PO SCH (08:54)
[2019-02-15] MEDS: AMLODIPINE BESYLATE 5 MG TAB PO SCH (08:54)
[2019-02-15] MEDS: DOCUSATE SODIUM/SENNA 50/8.6MG TAB PO SCH (08:55)
[2019-02-15] MEDS: ATENOLOL 50 MG TABLET PO SCH (08:55)
[2019-02-15] MEDS: LISINOPRIL 20 MG TAB PO SCH (08:55)
[2019-02-15] MEDS: INSULIN ASPART 100 UNITS/ML 3 ML PEN SC SCH ×2 (08:57→13:13)
--- NOTE | 2019-02-15 11:30 | Discharge Summary ---
PRINCIPAL DIAGNOSIS: Acute and chronic cholecystitis. OTHER DIAGNOSIS: Hypoxia. PROCEDURES: The patient underwent laparoscopic cholecystectomy. HISTORY OF PRESENT ILLNESS: The patient is a 63-year-old male who was brought into the hospital for elective cholecystectomy. He had approximately 1 month prior ERCP with stent placement secondary to cholangitis from common bile duct obstruction. At that time, he elected not to undergo cholecystectomy. The patient was taken to the operating room on 02/11/2019 where he underwent laparoscopic cholecystectomy, which was somewhat difficult because of his scar tissue. I was concerned about drainage. Therefore, I placed a JESSE drain which did have some seropurulent drainage postoperatively. This was cultured and did grow some bacteria which was suspected to be from the gallbladder. We maintained the patient on IV antibiotics and then switched him to Augmentin for discharge. He did require some pain medication and also oxygen at night with a decrease in his oxygen saturations. It is felt the patient is stable for discharge home on 02/15/2019 to be followed in the surgical clinic next week.
[2019-02-15] MEDS ORDERED: Nursing to Pharmacy Communication ONE (11:56)
[2019-02-15] MEDS ORDERED: AMOXICILLIN/CLAVULANATE 875 MG TAB PO SCH (12:00)
[2019-02-15] MEDS ORDERED: PANTOprazole 40 MG TAB PO SCH (12:00)
== END 2019-02-15 14:32 | disposition home health service (06) | DRG 417 ==
LOC: 3W 06:49 → ASU 06:49